=== PATIENT | female | born 1960 | race Caucasian/White ===

== ENCOUNTER → 2017-10-05 | Outpatient (CLI) | payer BC ==
[~2017-10-05] MED LIST: CANA1TAB PO; EZET10TA47 PO; FURO-85 PO; HYDR12.55 PO; IBUP-1450 PO; METF-384 PO; METO50TA16 PO; POTA10CA28 PO; SIMV40TA2 PO; SITA100T3 PO
[2017-10-05 18:38] LABS: MEAN CELL VOLUME 92.2 fL (80-100); MEAN CORPUSCULAR HEMOGLOBIN 32.6 pg (25-34); MEAN CORPUSCULAR HGB CONC 35.4 g/dl (32-36); MEAN PLATELET VOLUME 12.4 fL (7.4-10.4); PLATELET COUNT 22 K/uL (130-400); RED BLOOD COUNT 4.23 M/uL (4.2-5.4)
[2017-10-05 18:40] LABS: BASO % 0.2 %; BASO ABS # 0.01 K/uL (0-0.2); COMPLETE YES; EOS % 2.5 %; IG% 0.5 %; LYMPH % 24.1 %; LYMPH ABS # 1.06 K/uL (1.2-3.4); MONO % 12.3 %; NEUT % 60.4 %; PLT ESTIMATE SIGNIFIC DECREASED
== END | disposition home or self-care (01) ==
LOC: C.LAB 16:44
PROVIDERS: ATTEND Internal Medicine Gastroenterology
DX: K86.9 Disease of pancreas, unspecified (principal)

== ENCOUNTER → 2017-10-07 | Day surgery (SDC) | payer BC ==
[2017-10-05 15:36] VITALS: Ht 162.6 cm; Wt 110.9 kg
[2017-10-07] VITALS (12 sets, daily range): BP systolic 118–154; BP diastolic 48–78; PULSE 67–88; TEMP 36.5–36.8; O2SAT 93–100
[~2017-10-07] VITALS: Ht 162.6 cm; Wt 110.9 kg
[~2017-10-07] MED LIST changes: +ATROPINE SULFATE 0.1 MG/ML 5ML SYR IV PRN; -CANA1TAB PO; +DiphenhydrAMINE HCL 50 MG/ML VIAL IV SCH; +EpHEDrine SULFATE INJ 50 MG/ML AMP IV PRN; +FENTANYL CITRATE INJ 50 MCG/1 ML 2 ML VIAL IV PRN; +FENTANYL CITRATE INJ 50 MCG/1 ML 2 ML VIAL ONE; +FLUMAZENIL 0.1 MG/1 ML 10 ML VIAL IV ONE; +LACTATED RINGER'S 1000ML 1,000 ML IV SCH; +LIDOCAINE HCL 2% 2 ML VIAL (20MG/ML) ONE; +ONDANSETRON INJ 2 MG/ML 2 ML VIAL IV PRN; +ONDANSETRON INJ 2 MG/ML 2 ML VIAL ONE; +PROPOFOL IV EMULSION 10 MG/ML 20 ML VIAL IV ONE; -SIMV40TA2 PO; +SUCCINYLCHOLINE CHLORIDE 20 MG/ML 10 ML VIAL IV ONE
--- NOTE | 2017-10-07 08:39 | Endo History and Physical ---
History & Physical Date of Service: Oct 07, 2017. Chief Complaint: Abnormal CT scan Referring Physician: History of Present Illness 57-year-old female with a history of ITP who was referred for endoscopic ultrasound to evaluate a suspicious appearing pancreas on CT scan. The patient was found to have thrombocytopenia over 6 months ago and thought initially to have ITP. She was recently found to have antibody positive for hepatitis B, a full serologic workup is still not available. The patient does have a long history of obesity but denies a family history of liver problems or cirrhosis. There is no family history of liver cancer stomach cancer or esophageal cancer. She denies any prior intra-abdominal surgeries, tattoos or travel outside the [place] or IV drug abuse. Past Medical History ITP HYPERTENSION DIABETES OBESITY LYMPHEDEMA Past Surgical History Hx Cardiac Surgery: Yes (CARDIAC CATH MORE THAN 6 YRS AGO-NO STENTS) Hx Abdominal Surgery: Yes (OVARIAN CYSTECTOMY,GB SURG) Hx Post-Op Nausea and Vomiting: No Hx Cancer Surgery: No Hx Thoracic Surgery: No Hx Orthopedic: No Hx Urinary Tract Surgery: No Social History Smoking Status: Never Smoker Hx Substance Use: No Hx Alcohol Use: No Allergies Coded Allergies: Adhesives (Verified Allergy, Unknown, REDNESS TO SKIN,PULLED SKIN OFF- SOME TAPES, 10/07/17) Amoxicillin (Verified Allergy, Unknown, "gives me a urinary tract infection", 10/07/17) Canagliflozin (Verified Allergy, Unknown, AFFECTED LIVER?, 10/07/17) Poison Helga Extract/Poison [place] Extra (Verified Allergy, Unknown, "get a really bad case of it", 10/07/17) Simvastatin (Verified Adverse Reaction, Unknown, AFFECTED LIVER?, 10/07/17) Current Medications Reported Home Medications Medications Dose Route/Sig Max Daily Dose Days Date Category Dose Instructions Motrin (Ibuprofen) 600 Mg Tab 600 Mg PO BID 10/05/17 Reported Januvia (Sitagliptin Phosphate) 100 Mg Tab 100 Mg PO QPM 05/18/17 Reported Lopressor (Metoprolol Tartrate) 50 Mg Tab 50 Mg PO BID 05/18/17 Reported Micro-K Ext Rel (Potassium Chloride) 10 Meq Capcr 10 Meq PO PRN 05/18/17 Reported Zetia (Ezetimibe) 10 Mg Tab 10 Mg PO HS 05/17/17 Reported Hydrochlorothiazide 12.5 Mg Tab 1 Tab PO DAILY PRN 30 05/17/17 Reported Lasix (Furosemide) 20 Mg Tab 20 Mg PO DIRECTED PRN 05/17/17 Reported takes when ankles are swollen Glucophage (Metformin Hcl) 1,000 Mg Tab 1,000 Mg PO BID 05/17/17 Reported Vital Signs Weight (Kilograms): 110.91 Height (Feet): 5 Height (Inches): 4 Date Time Temp Pulse Resp B/P (MAP) Pulse Ox O2 Delivery O2 Flow Rate FiO2 10/07/17 08:15 36.7 75 18 131/50 97 10/07/17 08:01 36.7 67 18 132/57 (82) Room Air 10/07/17 08:00 36.7 73 18 124/48 98 10/07/17 07:45 36.7 67 18 132/57 97 Physical Exam General Appearance: no apparent distress Respiratory/Chest: Auscultation: breath sounds normal Cardiovascular: Heart Auscultation: RRR, no murmurs Abdomen: Inspection & Palpation: soft Assessment and Plan Patient presenting for endoscopic ultrasound to evaluate an abnormal appearing pancreas on CT scan. She is complicated given her thrombocytopenia and we are giving the patient 2 units of platelets prior to her procedure. We are planning to give unit of platelets after help prevent bleeding if the fine- needle aspiration is performed. I discussed the risks and benefits of the procedure at great length with the patient and her family. The risks include, perforation, infection, pain, hematoma, bleeding and insufficient cellularity if the fine-needle aspiration is performed. As there is a question of liver disease we are planning to do upper endoscopy to evaluate for evidence of portal hypertension. plan 2 units platelets prior to EGD / EUS 1 unit platelets after procedure
[2017-10-07 09:59] LABS: HEMATOCRIT 35.9 % (37-47); MEAN CELL VOLUME 91.6 fL (80-100); MEAN CORPUSCULAR HEMOGLOBIN 32.9 pg (25-34); MEAN CORPUSCULAR HGB CONC 35.9 g/dl (32-36); MEAN PLATELET VOLUME 10.6 fL (7.4-10.4); PLATELET COUNT 41 K/uL (130-400); RED BLOOD COUNT 3.92 M/uL (4.2-5.4); WHITE BLOOD COUNT 4.84 K/uL (4.8-10.8)
[2017-10-07 10:04] LABS: PLT ESTIMATE DECREASED
[2017-10-07 10:50] LABS: PLATELET COUNT 65 K/uL (130-400)
--- NOTE | 2017-10-07 11:01 | GI REPORT ---
Procedure Date: 10/07/2017 9:10 AM Procedure: Upper GI endoscopy Indications: Abnormal CT of the GI tract Medicines: General Anesthesia Complications: No immediate complications. Estimated blood loss: Minimal. Estimated Blood Loss: Estimated blood loss was minimal. Procedure: Pre-Anesthesia Assessment: - Prior to the procedure, a History and Physical was performed, and patient medications, allergies and sensitivities were reviewed. The patient's tolerance of previous anesthesia was reviewed. - The risks and benefits of the procedure and the sedation options and risks were discussed with the patient. All questions were answered and informed consent was obtained. - Patient identification and proposed procedure were verified prior to the procedure by the physician, the nurse and the elevating grader operator. The procedure was verified in the procedure room. - Pre-procedure physical examination revealed no contraindications to sedation. - ASA Grade Assessment: III - A patient with severe systemic disease. - After reviewing the risks and benefits, the patient was deemed in satisfactory condition to undergo the procedure. - The anesthesia plan was to use general anesthesia. - Immediately prior to administration of medications, the patient was re-assessed for adequacy to receive sedatives. - The heart rate, respiratory rate, oxygen saturations, blood pressure, adequacy of pulmonary ventilation, and response to care were monitored throughout the procedure. - The physical status of the patient was re-assessed after the procedure. After obtaining informed consent, the endoscope was passed under direct vision. Throughout the procedure, the patient's blood pressure, pulse, and oxygen saturations were monitored continuously. The scope was introduced through the mouth, and advanced to the third part of duodenum. The upper GI endoscopy was accomplished without difficulty. The patient tolerated the procedure well. Findings: Grade I varices with no bleeding were found in the lower third of the esophagus 30 to 36 cm from the incisors. These had no stigmata of recent bleeding. The varices had no red matteo signs. They were 3 mm in largest diameter. Moderate portal hypertensive gastropathy was found in the entire examined stomach. Biopsies were taken with a cold forceps to screen for H pylori Estimated blood loss was minimal. Estimated blood loss was minimal. The examined duodenum was normal. Impression: - Grade I esophageal varices. - Portal hypertensive gastropathy. Biopsied. - Normal examined duodenum. Recommendation: - Await pathology results. - Perform an upper endoscopic ultrasound (UEUS) today. Cortes Reed D.O. Cortes Reed DO 10/07/2017 10:26:26 AM This report has been signed electronically. Note Initiated On: 10/07/2017 9:10 AM I attest to the content of the Intraoperative Record and orders documented therein, exceptions below
--- NOTE | 2017-10-07 11:30 | [facility] Post Operative Brief Note ---
Immediate Operative Summary Operative Date Oct 07, 2017. Pre-Operative Diagnosis Abnormal CT Scan with mass on pancreas Post-Operative Diagnosis Esophageal varices Portal gastropathy 21 mm pancreatic body mass Procedure(s) Performed Upper Gastrointestinal Endoscopy Endoscopic Ultrasonography with biopsy and fine needle aspiration Surgeon Dr. Cortes Reed Order Desk Caller Surgeon(s) None Estimated Blood Loss zero per surgeon Findings Esophageal varices Portal gastropathy 21 mm pancreatic body mass Specimens 1) Gastric biopsies 2) Pancreatic mass cytology Anesthesia General Complication(s) None Disposition Recovery Room / PACU
--- NOTE | 2017-10-07 11:31 | Discharge Instructions ---
Endoscopy Patient Instructions Date / Procedure(s) Performed Oct 07, 2017. EGD, Other (Endoscopic ultrasound) Allergy Information Coded Allergies: Adhesives (Verified Allergy, Unknown, REDNESS TO SKIN,PULLED SKIN OFF- SOME TAPES, 10/07/17) Amoxicillin (Verified Allergy, Unknown, "gives me a urinary tract infection", 10/07/17) Canagliflozin (Verified Allergy, Unknown, AFFECTED LIVER?, 10/07/17) Poison Helga Extract/Poison [place] Extra (Verified Allergy, Unknown, "get a really bad case of it", 10/07/17) Simvastatin (Verified Adverse Reaction, Unknown, AFFECTED LIVER?, 10/07/17) Discharge Date / Findings Oct 07, 2017. Esophageal varices Portal gastropathy 21 mm pancreatic body mass Medication Instructions Restart Stopped Medication(s): Reported Home Medications Medications Dose Route/Sig Max Daily Dose Days Date Category Dose Instructions Motrin (Ibuprofen) 600 Mg Tab 600 Mg PO BID 10/05/17 Reported Januvia (Sitagliptin Phosphate) 100 Mg Tab 100 Mg PO QPM 05/18/17 Reported Lopressor (Metoprolol Tartrate) 50 Mg Tab 50 Mg PO BID 05/18/17 Reported Micro-K Ext Rel (Potassium Chloride) 10 Meq Capcr 10 Meq PO PRN 05/18/17 Reported Zetia (Ezetimibe) 10 Mg Tab 10 Mg PO HS 05/17/17 Reported Hydrochlorothiazide 12.5 Mg Tab 1 Tab PO DAILY PRN 30 05/17/17 Reported Lasix (Furosemide) 20 Mg Tab 20 Mg PO DIRECTED PRN 05/17/17 Reported takes when ankles are swollen Glucophage (Metformin Hcl) 1,000 Mg Tab 1,000 Mg PO BID 05/17/17 Reported Provider Instructions Activity Restrictions - No exercising or heavy lifting for 24 hours. - Do not drink alcohol the day of the procedure. - Do not drive a car or operate machinery until the day after the procedure. - Do not make any important decisions or sign important papers in 24 hours after the procedure. Following Day: - Return to full activity which may include returning to work/school. Diet Start your diet with liquids and light foods (jello, soup, juice, toast). Then eat your usual diet if not nauseated. Treatment For Common After Affects For mild abdominal pain, bloating, or excessive gas: - Rest - Eat lightly - Lie on right side Follow-Up Information Await pathology results No nonsteroidals for 1 week Anesthesia Information What You Should Know You have had a procedure that required some medicine to reduce anxiety and discomfort. This treatment is called moderate sedation. After receiving the treatment, you may be sleepy, but you will be able to breathe on your own. The effects of the treatment may last for several hours. Follow these instructions along with Activity/Diet recommendations noted above: * Do NOT do anything where dizziness or clumsiness would be dangerous. * Rest quietly at home today, then you can be up and about tomorrow. * Have a responsible person stay with you the rest of today. * You may have had an I.V. today. If so, you may take the dressing off later today. Recommendations Call your doctor if: * Trouble breathing * Continuous vomiting for more than 24 hours * Temperature above 101 degrees * Severe abdominal pain or bloating * Pain not relieved by pain medicine ordered * There is increased drainage or redness from any incision * A large amount of rectal bleeding greater than 2-3 tablespoons. (If you had a polyp/s removed or have hemorrhoids, a small amount of blood - from the rectum is to be expected.) * You have any unanswered questions or concerns. IN THE EVENT OF A SERIOUS EMERGENCY, GO TO THE NEAREST EMERGENCY ROOM Your discharge instructions were prepared by provider Cortes Reed. Patient Instructions Signature Page Edwina Fountain Patient (or Guardian) Signature/Date: I have read and understand the instructions given to me by my caregivers. Caregiver/RN/Doctor Signature/Date: The above-named patient and/or guardian has received patient instructions on this date. + Original Patient Signature Page (only) stays with chart. Please make copy for patient.
--- NOTE | 2017-10-07 11:41 | GI REPORT ---
Procedure Date: 10/07/2017 10:26 AM Procedure: Upper EUS Indications: Suspected mass in pancreas on CT scan Medicines: General Anesthesia Complications: No immediate complications. Estimated blood loss: Minimal. Estimated Blood Loss: Estimated blood loss was minimal. Procedure: Pre-Anesthesia Assessment: - Prior to the procedure, a History and Physical was performed, and patient medications, allergies and sensitivities were reviewed. The patient's tolerance of previous anesthesia was reviewed. - The risks and benefits of the procedure and the sedation options and risks were discussed with the patient. All questions were answered and informed consent was obtained. - Patient identification and proposed procedure were verified prior to the procedure by the physician, the nurse and the dredge engineer. The procedure was verified in the procedure room. - Pre-procedure physical examination revealed no contraindications to sedation. - ASA Grade Assessment: III - A patient with severe systemic disease. - After reviewing the risks and benefits, the patient was deemed in satisfactory condition to undergo the procedure. - The anesthesia plan was to use general anesthesia. - Immediately prior to administration of medications, the patient was re-assessed for adequacy to receive sedatives. - The heart rate, respiratory rate, oxygen saturations, blood pressure, adequacy of pulmonary ventilation, and response to care were monitored throughout the procedure. - The physical status of the patient was re-assessed after the procedure. After obtaining informed consent, the endoscope was passed under direct vision. Throughout the procedure, the patient's blood pressure, pulse, and oxygen saturations were monitored continuously. The Scope was introduced through the mouth, and advanced to the second part of duodenum. The upper EUS was accomplished without difficulty. The patient tolerated the procedure well. Findings: Endosonographic Finding : There was no sign of significant endosonographic abnormality in the ampulla. No masses were identified. There was mild dilation in the common bile duct which measured up to 6.5 mm. There was abnormal echogenicity in the visualized portion of the liver. This area was hypoechoic. No lymphadenopathy seen. There was no sign of significant endosonographic abnormality in the left adrenal gland. No masses and no adrenal gland enlargement were identified. There was no sign of significant endosonographic abnormality in the pancreatic head. No masses, the pancreatic duct was thin in caliber. The PD was 3 mm in the head (normal) An oval mass was identified in the pancreatic body (junction of neck and body). The mass was hypoechoic. The mass measured 24 mm by 15 mm in maximal cross-sectional diameter. The outer margins were irregular. There was sonographic evidence suggesting invasion into the splenic vein (manifested by abutment). An intact interface was seen between the mass and the superior mesenteric artery and celiac trunk suggesting a lack of invasion. The remainder of the pancreas was examined. The endosonographic appearance of parenchyma and the upstream pancreatic duct indicated duct dilation, a maximum duct diameter of 3 mm and parenchymal atrophy. Fine needle aspiration for cytology was performed. Color Doppler imaging was utilized prior to needle puncture to confirm a lack of significant vascular structures within the needle path. Five passes were made with the 25 gauge needle using a transgastric approach. A stylet was used. A expanding machine operator was present and performed a preliminary cytologic examination. The cellularity of the specimen was adequate. Final cytology results are pending. Estimated blood loss was minimal. Impression: - Normal ampulla. - Mild CBD dilation to 6.5 mm (age related). - There was abnormal echogenicity in the visualized portion of the liver. This was hypoechoic and consistent with a clinical history of cirrhosis. - Endosonographic images of the left adrenal gland were unremarkable. - Normal pancreatic head. - A 24 mm mass was identified in the pancreatic body. This was staged T2 N0 Mx by endosonographic criteria. The staging applies if malignancy is confirmed. Fine needle aspiration performed. Recommendation: - Observe patient in PACU for 1 hour for observation. - Advance diet as tolerated today. - Await cytology results. Cortes Reed D.O. Cortes Reed DO 10/07/2017 11:40:58 AM This report has been signed electronically. Note Initiated On: 10/07/2017 10:26 AM I attest to the content of the Intraoperative Record and orders documented therein, exceptions below
--- NOTE | 2017-10-07 12:17 | Anesthesiology Progress Note ---
Anesthesia Post Op Note Date & Time Oct 07, 2017 at 12:17 Vital Signs Pain Intensity: 0 Vital Signs Past 12 Hours Date Time Temp Pulse Resp B/P (MAP) Pulse Ox O2 Delivery O2 Flow Rate FiO2 10/07/17 12:05 37.5 80 20 124/71 97 Room Air 10/07/17 11:55 78 20 123/64 100 Room Air 10/07/17 11:45 77 20 137/78 99 Oxymask 10 10/07/17 11:45 36.5 79 16 137/78 100 10.0 10/07/17 11:35 76 20 120/59 99 Oxymask 10 10/07/17 11:28 36.2 93 20 129/56 98 Oxymask 10 10/07/17 09:20 36.7 79 16 137/50 96 10/07/17 09:06 36.7 79 18 118/52 94 10/07/17 08:46 36.8 75 18 128/50 99 10/07/17 08:40 36.7 78 18 128/50 98 10/07/17 08:15 36.7 75 18 131/50 97 10/07/17 08:01 36.7 67 18 132/57 (82) Room Air 10/07/17 08:00 36.7 73 18 124/48 98 10/07/17 07:45 36.7 67 18 132/57 97 Notes Mental Status: alert / awake / arousable, participated in evaluation Pt Amnestic to Procedure: Yes Nausea / Vomiting: adequately controlled Pain: adequately controlled Airway Patency, RR, SpO2: stable & adequate BP & HR: stable & adequate Hydration State: stable & adequate Anesthetic Complications: no major complications apparent
== END | disposition home or self-care (01) ==
LOC: C.ACU 06:37
PROVIDERS: ATTEND Internal Medicine Gastroenterology
DX: C25.1 Malignant neoplasm of body of pancreas (principal); I85.00 Esophageal varices without bleeding; K31.89 Other diseases of stomach and duodenum; E11.9 Type 2 diabetes mellitus without complications; I10 Essential (primary) hypertension

== ENCOUNTER 2017-12-30 12:37 | Inpatient (IN) | payer BC ==
[~2017-12-30] VITALS: Ht 167.6 cm; Wt 107.3 kg
[~2017-12-30 12:37] MED LIST changes: -ATROPINE SULFATE 0.1 MG/ML 5ML SYR IV PRN; -DiphenhydrAMINE HCL 50 MG/ML VIAL IV SCH; -EpHEDrine SULFATE INJ 50 MG/ML AMP IV PRN; -FENTANYL CITRATE INJ 50 MCG/1 ML 2 ML VIAL IV PRN; -FENTANYL CITRATE INJ 50 MCG/1 ML 2 ML VIAL ONE; -FLUMAZENIL 0.1 MG/1 ML 10 ML VIAL IV ONE; -IBUP-1450 PO; -LACTATED RINGER'S 1000ML 1,000 ML IV SCH; -LIDOCAINE HCL 2% 2 ML VIAL (20MG/ML) ONE; -METO50TA16 PO; -ONDANSETRON INJ 2 MG/ML 2 ML VIAL IV PRN; -ONDANSETRON INJ 2 MG/ML 2 ML VIAL ONE; -PROPOFOL IV EMULSION 10 MG/ML 20 ML VIAL IV ONE; -SITA100T3 PO; -SUCCINYLCHOLINE CHLORIDE 20 MG/ML 10 ML VIAL IV ONE
[2017-12-30] MEDS ORDERED: SODIUM CHLORIDE 0.9% 1000ML 1,000 ML IV STA ×2 (13:12→13:30)
--- NOTE | 2017-12-30 13:28 | EMERGENCY ROOM VISIT NOTE ---
History First contact with patient: 13:08 Chief Complaint: ABNORMAL LABS Stated Complaint: ABNORMAL LABS History of Present Illness The patient is a 57 year old female who presents to the Emergency Room with complaints of worsening generalized weakness over the past week and now referred to ED by her pcp for worsening outpatient labs showing worsening renal function and elevated potassium. Reports fatigue, generalized weakness, intermittent dyspnea on exertion. Still urinating but feels she has been urinating less. Denies CP, f/c, n/v, diarrhea, dysuria. Source of History: patient Onset: past week Position: other (generalized) Symptom Intensity: moderate Quality: other (fatigue) Timing: constant Modifying Factors (Worsening): exertion Modifying Factors (Relieving): rest Associated Symptoms: + SOB, + urinary symptoms, + fatigue, + weakness, No fevers, No chills, No headache, No chest pain, No nausea, No vomiting, No abdominal pain, No diarrhea Review of Systems See HPI for pertinent positives and negatives. A total of ten systems were reviewed and were otherwise negative. Past Medical/Surgical History Medical Problems: (1) GUILLERMINA (acute kidney injury) (2) Cirrhosis (3) DM type 2 (diabetes mellitus, type 2) (4) HTN (hypertension) (5) POWERS (nonalcoholic steatohepatitis) (6) Pancreatic cancer (7) Splenomegaly (8) Thrombocytopenia Surgical Problems: (1) History of endometrial ablation (2) Hx of cholecystectomy (3) Hx of esophagogastroduodenoscopy (4) Hx of tonsillectomy Family History Patient reports no known family medical history. Social History Smoking Status: Never Smoker Marital Status: Occupation Status: employed Current/Historical Medications Scheduled Ezetimibe (Zetia), 10 MG PO HS Ibuprofen (Ibuprofen), 2 TAB PO BID Metformin Hcl (Glucophage), 1,000 MG PO BID Metoprolol Tartrate (Lopressor) (Lopressor), 50 MG PO DAILY Sitagliptin Phosphate (Januvia), 100 MG PO QPM Spironolactone (Aldactone), 50 MG PO DAILY Scheduled PRN Alprazolam (Xanax), 1 TAB PO HS PRN for Insomnia Hydrochlorothiazide (Hydrochlorothiazide), 1 TAB PO DAILY PRN for PRN Allergies Amoxicillin, Simvastatin, Adhesives Physical Exam Vital Signs Date Time Temp Pulse Resp B/P (MAP) Pulse Ox O2 Delivery O2 Flow Rate FiO2 12/30/17 16:13 84 18 122/65 98 Room Air 12/30/17 15:09 84 18 120/66 98 Room Air 12/30/17 14:24 84 12/30/17 14:10 84 18 120/62 97 Room Air 12/30/17 12:44 36.6 82 18 143/61 99 Physical Exam GENERAL: Awake, alert, fatigued-appearing, in no distress HENT: Normocephalic, atraumatic. Oropharynx with dry mucus membranes otherwise unremarkable. EYES: Normal conjunctiva. Sclera non-icteric. NECK: Supple. No nuchal rigidity. FROM. No JVD. RESPIRATORY: Clear to auscultation. CARDIAC: Regular rate, normal rhythm. Extremities warm and well perfused. Pulses equal. ABDOMEN: Soft, obese. No tenderness to palpation. No rebound or guarding. No masses. RECTAL: Deferred. MUSCULOSKELETAL: Chest examination reveals no tenderness. The back is symmetrical on inspection without obvious abnormality. There is no CVA tenderness to palpation. No joint edema. LOWER EXTREMITIES: Calves are equal size bilaterally and non-tender. 2+ bilateral pitting edema. No discoloration. NEURO: Normal sensorium. No sensory or motor deficits noted. SKIN: No rash or jaundice noted. Medical Decision & Procedures ER Provider Diagnostic Interpretation: Radiology results as stated below per my review and radiologist interpretation: CHEST ONE VIEW PORTABLE CLINICAL HISTORY: Shortness of breath COMPARISON STUDY: No previous studies for comparison. FINDINGS: The cardiac and mediastinal contours are normal. There is no evidence of focal pulmonary consolidation. There is no evidence of failure. No pleural effusions are visualized.[ IMPRESSION: No active disease in the chest. Electronically signed by: Marvin Julien M.D. 12/30/2017 1:44 PM Dictated Date/Time: 12/30/2017 1:[address] OF THE ABDOMEN AND PELVIS WITHOUT CONTRAST CLINICAL HISTORY: Abdominal pain. Renal failure. Pancreatic cancer. COMPARISON STUDY: No previous studies for comparison. TECHNIQUE: Axial images of the abdomen and pelvis were obtained without IV contrast. Images were reviewed in the axial, sagittal, and coronal planes. A dose lowering technique was utilized adhering to the principles of ALARA. FINDINGS: Visualized portions of the lower chest demonstrate numerous noncalcified pulmonary nodules, including a 6 mm right lower lobe nodule shown image 93 of 521, a 5 mm left lower lobe nodule shown image 79 and a 6 mm noncalcified right middle lobe nodule shown on image 48. Evaluation of the abdomen and pelvis is suboptimal on this unenhanced exam. Paraesophageal varices are noted. The liver is cirrhotic. Specifically, the liver is dysmorphic, shrunken and has a nodular contour. Sensitivity for detection of hepatic lesions is significantly diminished on this unenhanced study but none are identified. The spleen is moderately enlarged. Moderate abdominal and pelvic ascites is noted. Additional upper abdominal varices are noted. There is anasarca. There is no pneumatosis, free air or portal venous gas. Unenhanced images of the adrenal glands are unremarkable. There are small bilateral renal calculi. There are no ureteral calculi. There is no hydronephrosis or hydroureter. The appendix is normal. The pancreatic tail is atrophic. There is a possible hypodensity within the pancreatic body with possible pancreatic ductal dilatation which is suboptimally assessed on this unenhanced exam. There are no suspicious osseous lesions. Mesenteric infiltration is likely related to portal hypertension. No pneumatosis, free air or portal venous gas is present. IMPRESSION: 1. Cirrhosis with manifestations of portal hypertension including moderate splenomegaly, moderate ascites and varices formation. 2. Suboptimal evaluation of the abdomen and pelvis given the lack of IV contrast. 3. Possible hypodensity within the pancreatic body with upstream pancreatic glandular atrophy and possible pancreatic ductal dilatation which may reflect the known primary pancreatic lesion. 4. Multiple small indeterminate pulmonary nodules. 5. Bilateral nephrolithiasis. 6. Generalized anasarca. Electronically signed by: Branden Tamez M.D. 12/30/2017 3:42 PM Dictated Date/Time: 12/30/2017 3:30 PM Laboratory Results 12/30/17 14:04 Red Blood Count 3.32, Mean Corpuscular Volume 91.9, Mean Corpuscular Hemoglobin 33.4, Mean Corpuscular Hemoglobin Concent 36.4, Mean Platelet Volume 11.5, Neutrophils (%) (Auto) 66.4, Lymphocytes (%) (Auto) 18.7, Monocytes (%) (Auto) 12.8, Eosinophils (%) (Auto) 1.7, Basophils (%) (Auto) 0.2, Neutrophils # (Auto ) 3.48, Lymphocytes # (Auto) 0.98, Monocytes # (Auto) 0.67, Eosinophils # (Auto ) 0.09, Basophils # (Auto) 0.01 Test 12/30/17 13:40 12/30/17 14:04 Urine Crystals CALCIUM OXALATE (NONE Urine Pathogenic Casts /lpf (0) White Blood Count 5.24 K/uL (4.8-10.8) Red Blood Count 3.32 M/uL (4.2-5.4) Hemoglobin 11.1 g/dL (12.0-16.0) Hematocrit 30.5 % (37-47) Mean Corpuscular Volume 91.9 fL (80-100) Mean Corpuscular Hemoglobin 33.4 pg (25-34) Mean Corpuscular Hemoglobin Concent 36.4 g/dl (32-36) Platelet Count 35 K/uL (130-400) Mean Platelet Volume 11.5 fL (7.4-10.4) Neutrophils (%) (Auto) 66.4 % Lymphocytes (%) (Auto) 18.7 % Monocytes (%) (Auto) 12.8 % Eosinophils (%) (Auto) 1.7 % Basophils (%) (Auto) 0.2 % Neutrophils # (Auto) 3.48 K/uL (1.4-6.5) Lymphocytes # (Auto) 0.98 K/uL (1.2-3.4) Monocytes # (Auto) 0.67 K/uL (0.11-0.59) Eosinophils # (Auto) 0.09 K/uL (0-0.5) Basophils # (Auto) 0.01 K/uL (0-0.2) RDW Standard Deviation 48.7 fL (36.4-46.3) RDW Coefficient of Variation 14.7 % (11.5-14.5) Immature Granulocyte % (Auto) 0.2 % Immature Granulocyte # (Auto) 0.01 K/uL (0.00-0.02) Prothrombin Time 12.2 SECONDS (9.0-12.0) Prothromb Time International Ratio 1.2 (0.9-1.1) Magnesium Level 1.9 mg/dl (1.8-2.4) Total Bilirubin 2.6 mg/dl (0.2-1) Direct Bilirubin 1.0 mg/dl (0-0.2) Aspartate Amino Transf (AST/SGOT) 54 U/L (15-37) Alanine Aminotransferase (ALT/SGPT) 33 U/L (12-78) Alkaline Phosphatase 81 U/L (45-117) Total Protein 5.9 gm/dl (6.4-8.2) Albumin 2.9 gm/dl (3.4-5.0) Lipase 324 U/L (73-393) Laboratory results reviewed by me Medications Administered Medications (Trade) Dose Ordered Sig/Ngoc Route Start Time Stop Time Status Last Admin Dose Admin Sodium Chloride 1,000 ml @ 125 mls/hr Q8H STAT IV 12/30/17 13:30 12/30/17 18:27 DC 12/30/17 14:10 125 MLS/HR Ceftriaxone Sodium (Rocephin Inj) 1 gm NOW STAT IV 12/30/17 15:50 12/30/17 15:55 DC 12/30/17 16:14 1 GM ECG Per My Interpretation Indication: other (Abnormal lab results) Rate (beats per minute): 83 Rhythm: normal sinus Findings: no acute ischemic change, other (Normal axis) ED Course 1308: The patient was evaluated in room C10. A complete history and physical exam was performed. 1534: Upon reexamination, the patient was resting comfortably. I discussed the test results and treatment plan with her. The patient will be evaluated for further management. 1550: I discussed the patient's case [facility] The patient will be evaluated for further management. Medical Decision I reviewed the patient's past medical history, medications, and the nursing notes as described above. Differential diagnosis: Etiologies such as metabolic, infection, hypo/hyperglycemia, electrolyte abnormalities, cardiac sources, intracerebral event, toxicologic, neurologic, as well as others were entertained. The patient is a 57-year-old woman with a past medical history of Powers cirrhosis and thrombocytopenia with a new diagnosis of pancreatic cancer that is not amenable to surgery, radiation, or chemotherapy but [facility] with worsening outpatient labs of elevated potassium and creatinine in the setting of worsening generalized fatigue and peripheral edema per hpi. On arrival the patient is fatigued appearing but in no acute distress, afebrile stable vital signs. The patient reports increased abdominal distention but her abdomen is otherwise soft nontender. She has 2+ bilateral lower extremity pitting edema that has increased over the past week. Labs notable for acute renal failure with Cr 3.1 compared to wnl last month. Lactate elevated to 3 in the setting of patient's clinically dry appearance (despite her peripheral edema). WBC wnl. UA dirty but with WBC and bacteria so will cover with CTX for now. CT abd/pelvis demonstrates patient's cirrhosis and likely primary pancreatic lesion but otherwise no acute findings though limited by lack of contrast. Case d/w Mauricio Pittman PA-C, who will admit the patient for further management. The scribe's documentation has been prepared under my direction and personally reviewed by me in its entirety. I confirm that the note above accurately reflects all work, treatment, procedures, and medical decision making performed by me. Medication Reconcilliation Current Medication List: was personally reviewed by me Blood Pressure Screening Patient's blood pressure: Normal blood pressure Blood pressure disposition: Did not require urgent referral Consults Time Called: 1548 Consulting Physician: Carol Jimenez PA-C, [facility] Returned Call: 1550 I discussed the patient's case with Carol Jimenez PA-C, [facility]. The patient will be evaluated for further management. Impression Primary Impression: Acute renal failure Additional Impressions: Pancreatic cancer Cirrhosis Departure Information Dispostion Being Evaluated By Hospitalist Referrals Sal Edge M.D. (PCP) Patient Instructions My [facility] Problem Qualifiers
--- NOTE | 2017-12-30 13:45 | DIAGNOSTIC IMAGING REPORT ---
CHEST ONE VIEW PORTABLE CLINICAL HISTORY: Shortness of breath COMPARISON STUDY: No previous studies for comparison. FINDINGS: The cardiac and mediastinal contours are normal. There is no evidence of focal pulmonary consolidation. There is no evidence of failure. No pleural effusions are visualized.[ IMPRESSION: No active disease in the chest. Electronically signed by: Marvin Julien M.D. 12/30/2017 1:44 PM Dictated Date/Time: 12/30/2017 1:44 PM
[2017-12-30] MEDS ORDERED: METO50TA16 PO (13:46)
[2017-12-30] MEDS ORDERED: SITA100T3 PO (13:47)
[2017-12-30 14:19] LABS: HEMATOCRIT 30.5 % (37-47); HEMOGLOBIN 11.1 g/dL (12.0-16.0); MEAN CELL VOLUME 91.9 fL (80-100); MEAN CORPUSCULAR HEMOGLOBIN 33.4 pg (25-34); MEAN CORPUSCULAR HGB CONC 36.4 g/dl (32-36); RED CELL DISTRIBUTION WIDTH CV 14.7 % (11.5-14.5); RED CELL DISTRIBUTION WIDTH SD 48.7 fL (36.4-46.3); WHITE BLOOD COUNT 5.24 K/uL (4.8-10.8)
[2017-12-30] MEDS ORDERED: SPIR50TA2 PO (14:19)
[2017-12-30 14:20] LABS: MEAN PLATELET VOLUME 11.5 fL (7.4-10.4); PLATELET COUNT 35 K/uL (130-400)
[2017-12-30 14:27] LABS: INR 1.2 (0.9-1.1)
[2017-12-30 14:36] LABS: ALBUMIN 2.9 gm/dl (3.4-5.0); CALCIUM 9.6 mg/dl (8.5-10.1); CREATININE 3.1 mg/dl (0.60-1.20); POTASSIUM 4.8 mmol/L (3.5-5.1)
[2017-12-30 14:39] LABS: BASO % 0.2 %; BASO ABS # 0.01 K/uL (0-0.2); EOS % 1.7 %; EOS ABS # 0.09 K/uL (0-0.5); IG# 0.01 K/uL (0.00-0.02); LYMPH % 18.7 %; LYMPH ABS # 0.98 K/uL (1.2-3.4); MONO % 12.8 %; MONO ABS # 0.67 K/uL (0.11-0.59); NEUT % 66.4 %; NEUT ABS # 3.48 K/uL (1.4-6.5); TOTAL PROTEIN 5.9 gm/dl (6.4-8.2)
[2017-12-30] MEDS ORDERED: IBUP-1450 PO (15:42)
--- NOTE | 2017-12-30 15:43 | DIAGNOSTIC IMAGING REPORT ---
CT OF THE ABDOMEN AND PELVIS WITHOUT CONTRAST CLINICAL HISTORY: Abdominal pain. Renal failure. Pancreatic cancer. COMPARISON STUDY: No previous studies for comparison. TECHNIQUE: Axial images of the abdomen and pelvis were obtained without IV contrast. Images were reviewed in the axial, sagittal, and coronal planes. A dose lowering technique was utilized adhering to the principles of ALARA. FINDINGS: Visualized portions of the lower chest demonstrate numerous noncalcified pulmonary nodules, including a 6 mm right lower lobe nodule shown image 93 of 521, a 5 mm left lower lobe nodule shown image 79 and a 6 mm noncalcified right middle lobe nodule shown on image 48. Evaluation of the abdomen and pelvis is suboptimal on this unenhanced exam. Paraesophageal varices are noted. The liver is cirrhotic. Specifically, the liver is dysmorphic, shrunken and has a nodular contour. Sensitivity for detection of hepatic lesions is significantly diminished on this unenhanced study but none are identified. The spleen is moderately enlarged. Moderate abdominal and pelvic ascites is noted. Additional upper abdominal varices are noted. There is anasarca. There is no pneumatosis, free air or portal venous gas. Unenhanced images of the adrenal glands are unremarkable. There are small bilateral renal calculi. There are no ureteral calculi. There is no hydronephrosis or hydroureter. The appendix is normal. The pancreatic tail is atrophic. There is a possible hypodensity within the pancreatic body with possible pancreatic ductal dilatation which is suboptimally assessed on this unenhanced exam. There are no suspicious osseous lesions. Mesenteric infiltration is likely related to portal hypertension. No pneumatosis, free air or portal venous gas is present. IMPRESSION: 1. Cirrhosis with manifestations of portal hypertension including moderate splenomegaly, moderate ascites and varices formation. 2. Suboptimal evaluation of the abdomen and pelvis given the lack of IV contrast. 3. Possible hypodensity within the pancreatic body with upstream pancreatic glandular atrophy and possible pancreatic ductal dilatation which may reflect the known primary pancreatic lesion. 4. Multiple small indeterminate pulmonary nodules. 5. Bilateral nephrolithiasis. 6. Generalized anasarca. Electronically signed by: Branden Tamez M.D. 12/30/2017 3:42 PM Dictated Date/Time: 12/30/2017 3:30 PM
[2017-12-30] MEDS ORDERED: CEFTRIAXONE SOD INJ 1 GM ADDVIAL IV STA (15:50)
[2017-12-30] MEDS ORDERED: ALPR0.5T PO (17:08)
[2017-12-30] MEDS ORDERED: IBUP1CAP9 PO (17:08)
[2017-12-30] MEDS ORDERED: ONDANSETRON INJ 2 MG/ML 2 ML VIAL IV PRN (17:15)
[2017-12-30] MEDS ORDERED: GLUCOSE 10 TABS/TUBE PO PRN (17:45)
[2017-12-30] MEDS ORDERED: DEXTROSE 50% 50 ML SYR IV PRN (17:45)
[2017-12-30] MEDS ORDERED: GLUCOSE 40% GEL 15 GM TUBE PO PRN (17:45)
[2017-12-30] MEDS ORDERED: GLUCAGON FOR INJ 1 MG VIAL SQ PRN (17:45)
[2017-12-30 18:23] VITALS: BP 120/77; PULSE 82; TEMP 36.7; O2SAT 99; BMI 39.5
[2017-12-30] MEDS ORDERED: SODIUM CHLORIDE 0.9% 1000ML 1,000 ML IV SCH (18:30)
--- NOTE | 2017-12-30 19:08 | History and Physical ---
History & Physical Date & Time of Service: Dec 30, 2017 at 17:11 Chief Complaint: Abnormal Labs Primary Care Physician: Sal Edge M.D. History of Present Illness Source: patient, family, clinic records, hospital records Pt is 57 y/o F with PMH HTN, DM II, pancreatic CA dx 10/2017, cirrhosis with portal hypertension, ascites, splenomegaly, portosystemic varices, small esophageal varices seen on EGD 10/17, thrombocytopenia presented to ER for abnormal lab values of K:6.0 and Cr: 3. Pt following with Dr Eris Batista - [place] [facility] [place] Pt not surgical candidate, not on chemo. Pt reports increased fatigue past 2 weeks. Pt states past 2 weeks noticed increased abdominal swelling. Having some intermittent right sided abdominal pain past couple of weeks also. Has been taking HCTZ daily and spironolactone daily. chronic LE edema for years, noticed increased edema past 4-5 days. Reports has BM every 3- 4 days. pt reports was given lactulose 30ml to take once daily. States took twice and had abdominal cramping and stopped. She is following with holistic practitioner and is taking herbal supplements, pt unsure what all she is taking. She hasn't been using creon since taking supplements. Using ibuprofen 200-400 mg BID. Reports hasn't been eating and drinking well past couple of days. 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 pt states platelet levels, been stable for several months. Hasn't had NPLATE since 09/2017. Denies hx encephalopathy. Denies hx paracentesis. Denies melena, hematochezia, hematuria, fever/chills, diaphoresis , N/V/D, L[place], dizziness, syncope, neck pain, CP, palpitations, cough, sore throat , choking. Hx CT Abd/Pelvis 09/27/17: Cirrhosis of liver with portal hypertension. splenomegaly, small ascites, and portosystemic varices. No focal hepatic lesion seen. Pancreatic neck/body hypodensity, [id number], with mild upstream pancreatic ductal prominence. several small basilar pulmonary nodules, largest 5mm. Repeat K: 4.8 here in ER today. Past Medical/Surgical History Medical Problems: (1) Cirrhosis Status: Chronic (2) DM type 2 (diabetes mellitus, type 2) Status: Chronic (3) HTN (hypertension) Status: Chronic (4) MEAD (nonalcoholic steatohepatitis) Status: Chronic (5) Pancreatic cancer Status: Chronic (6) Splenomegaly Status: Chronic (7) Thrombocytopenia Status: Chronic Surgical Problems: (1) History of endometrial ablation Status: Resolved (2) Hx of cholecystectomy Status: Resolved (3) Hx of esophagogastroduodenoscopy Permanent Comment: 10/07/17 - pancreatic mass, esophageal varices Status: Resolved (4) Hx of tonsillectomy Status: Resolved Family History Diabetes mellitus FH: CAD (coronary artery disease) FH: breast cancer Social History Smoking Status: Never Smoker Smokeless Tobacco Use: No Alcohol Use: none Drug Use: none Marital Status: Housing status: lives with family Occupational Status: employed Allergies Coded Allergies: Adhesives (Verified Allergy, Unknown, REDNESS TO SKIN,PULLED SKIN OFF- SOME TAPES, 12/30/17) Amoxicillin (Verified Allergy, Unknown, "gives me a urinary tract infection", 12/30/17) Canagliflozin (Verified Allergy, Unknown, AFFECTED LIVER?, 12/30/17) Poison Helga Extract/Poison Caspar Extra (Verified Allergy, Unknown, "get a really bad case of it", 12/30/17) Simvastatin (Verified Adverse Reaction, Unknown, AFFECTED LIVER?, 12/30/17) Home Medications Scheduled Ezetimibe (Zetia), 10 MG PO HS Ibuprofen (Ibuprofen), 2 TAB PO BID Metformin Hcl (Glucophage), 1,000 MG PO BID Metoprolol Tartrate (Lopressor) (Lopressor), 50 MG PO DAILY Sitagliptin Phosphate (Januvia), 100 MG PO QPM Spironolactone (Aldactone), 50 MG PO DAILY Scheduled PRN Alprazolam (Xanax), 1 TAB PO HS PRN for Insomnia Hydrochlorothiazide (Hydrochlorothiazide), 1 TAB PO DAILY PRN for PRN Review of Systems Constitutional: No fever, No chills, No sweats Eyes: No worsening of vision, No eye pain, No redness, No discharge, No diplopia ENT: No unusual epistaxis, No nasal symptoms, No sore throat, No trouble swallowing Respiratory: No cough, No sputum, No wheezing, No shortness of breath, No dyspnea on exertion, No dyspnea at rest, No hemoptysis Cardiovascular: No chest pain, No orthopnea, No PND, No palpitations Abdomen: + problem reported (see HPI), No GI bleeding Musculoskeletal: + swelling (see HPI), No calf pain Genitourinary - Female: No dysuria, No urinary frequency, No urinary urgency, No urinary incontinence, No urinary retention, No hematuria Neurologic: No memory loss, No paralysis, No numbness/tingling, No vertigo, No balance problems Endocrine: No excessive thirst, No excessive urination Hematologic / Lymphatic: No abnormal bleeding/bruising Integumentary: No rash, No itch Physical Exam Vital Signs Date Time Temp Pulse Resp B/P (MAP) Pulse Ox O2 Delivery O2 Flow Rate FiO2 12/30/17 16:13 84 18 122/65 98 Room Air 12/30/17 15:09 84 18 120/66 98 Room Air 12/30/17 14:24 84 12/30/17 14:10 84 18 120/62 97 Room Air 12/30/17 12:44 36.6 82 18 143/61 99 General Appearance: WD/WN, no apparent distress Head: normocephalic, atraumatic Eyes: PERRL, EOMI, + abnormal sclerae exam (+icterus) ENT: hearing grossly normal, pharynx normal, + pertinent finding (mildly dry mucous membranes) Neck: supple, no JVD, trachea midline Respiratory/Chest: lungs clear, normal breath sounds, no respiratory distress, no accessory muscle use Cardiovascular: regular rate, rhythm, no murmur, normal peripheral pulses Abdomen/GI: normal bowel sounds, non tender, + distended, + pertinent finding ( dull to percusion) Back: no CVA tenderness Extremities/Musculoskelatal: no calf tenderness, normal capillary refill, + pedal edema (2+ bilaterally) Neurologic/Psych: alert, normal mood/affect, oriented x 3, + pertinent finding (no asterixis ) Skin: warm/dry, no rash Diagnostics Laboratory Results Results Past 24 Hours Test 12/30/17 13:40 12/30/17 14:04 Range/Units Urine Color YELLOW Urine Appearance CLOUDY CLEAR Urine pH 5.0 4.5-7.5 Urine Specific Mc[place]ky 1.013 1.000-1.030 Urine Protein NEG NEG Urine Glucose (UA) NEG NEG Urine Ketones NEG NEG Urine Occult Blood NEG NEG Urine Nitrite NEG NEG Urine Bilirubin NEG NEG Urine Urobilinogen NEG NEG Urine Leukocyte Esterase SMALL NEG Urine WBC (Auto) >30 0-5 /hpf Urine RBC (Auto) 0-4 0-4 /hpf Urine Hyaline Casts (Auto) 0-5 /lpf Urine Epithelial Cells (Auto) >30 0-5 /lpf Urine Bacteria (Auto) 1+ NEG Urine Crystals CALCIUM OXALATE NONE PRSENT Urine Pathogenic Casts 0 /lpf White Blood Count 5.24 4.8-10.8 K/uL Red Blood Count 3.32 4.2-5.4 M/uL Hemoglobin 11.1 12.0-16.0 g/dL Hematocrit 30.5 37-47 % Mean Corpuscular Volume 91.9 80-100 fL Mean Corpuscular Hemoglobin 33.4 25-34 pg Mean Corpuscular Hemoglobin Concent 36.4 32-36 g/dl Platelet Count 35 130-400 K/uL Mean Platelet Volume 11.5 7.4-10.4 fL Neutrophils (%) (Auto) 66.4 % Lymphocytes (%) (Auto) 18.7 % Monocytes (%) (Auto) 12.8 % Eosinophils (%) (Auto) 1.7 % Basophils (%) (Auto) 0.2 % Neutrophils # (Auto) 3.48 1.4-6.5 K/uL Lymphocytes # (Auto) 0.98 1.2-3.4 K/uL Monocytes # (Auto) 0.67 0.11-0.59 K/uL Eosinophils # (Auto) 0.09 0-0.5 K/uL Basophils # (Auto) 0.01 0-0.2 K/uL RDW Standard Deviation 48.7 36.4-46.3 fL RDW Coefficient of Variation 14.7 11.5-14.5 % Immature Granulocyte % (Auto) 0.2 % Immature Granulocyte # (Auto) 0.01 0.00-0.02 K/uL Prothrombin Time 12.2 9.0-12.0 SECONDS Prothromb Time International Ratio 1.2 0.9-1.1 Sodium Level 130 136-145 mmol/L Potassium Level 4.8 3.5-5.1 mmol/L Chloride Level 99 98-107 mmol/L Carbon Dioxide Level 19 21-32 mmol/L Anion Gap 13.0 3-11 mmol/L Blood Urea Nitrogen 53 7-18 mg/dl Creatinine 3.10 0.60-1.20 mg/dl Est Creatinine Clear Calc Drug Dose 25.0 ml/min Estimated GFR () 18.3 Estimated GFR (Non- 15.8 BUN/Creatinine Ratio 17.0 10-20 Random Glucose 222 70-99 mg/dl Lactic Acid Level 3.2 0.4-2.0 mmol/L Calcium Level 9.6 8.5-10.1 mg/dl Magnesium Level 1.9 1.8-2.4 mg/dl Total Bilirubin 2.6 0.2-1 mg/dl Direct Bilirubin 1.0 0-0.2 mg/dl Aspartate Amino Transf (AST/SGOT) 54 15-37 U/L Alanine Aminotransferase (ALT/SGPT) 33 12-78 U/L Alkaline Phosphatase 81 45-117 U/L Total Protein 5.9 6.4-8.2 gm/dl Albumin 2.9 3.4-5.0 gm/dl Lipase 324 73-393 U/L Microbiology Results 12/30/17 Urine Culture, Received Pending Diagnostic Radiology CXR: IMPRESSION: No active disease in the chest. CT ABD/PELVIS: IMPRESSION: 1. Cirrhosis with manifestations of portal hypertension including moderate splenomegaly, moderate ascites and varices formation. 2. Suboptimal evaluation of the abdomen and pelvis given the lack of IV contrast. 3. Possible hypodensity within the pancreatic body with upstream pancreatic glandular atrophy and possible pancreatic ductal dilatation which may reflect the known primary pancreatic lesion. 4. Multiple small indeterminate pulmonary nodules. 5. Bilateral nephrolithiasis. 6. Generalized anasarca. EKG EKG: NSR, rate 83, no ST changes noted Read by heel attacher: Normal sinus rhythm Low voltage QRS Borderline ECG No previous ECGs available Confirmed by MILEY CLEMENS ([id number]) on 12/30/2017 2:29:17 PM Impression Assessment and Plan GUILLERMINA Cr: 3.1 today. Was 1.0 on 12/03/17. Pt with poor oral intake recently, has been on diuretics, appears dry today. DDX: hepatorenal syndrome. Pt given 1L NSS then ran at 125ml/hr in ER. -monitor renal functions -avoid nephrotoxic agents when possible -nephrology consult ASCITES/PANCREATIC CA/CIRRHOSIS Hx ESOPHAGEAL VARICES Hx EGD: 10/17 - esophageal varices. Pt not surgical candidate 2/2 comorbidities. Not on chemo. No active bleeding or hx bleeding. No hx encephalopathy and no current encephalopathy symptoms. Pt with increased abdominal distension past 2 weeks, increased LE edema. Total bili: 2.6 (2.6 recently). Direct bili: 1.0. AST: 54 (was 56). INR: 1.2. Today CT ABD/PELVIS: Cirrhosis with manifestations of portal hypertension including moderate splenomegaly, moderate ascites and varices formation. Possible hypodensity within the pancreatic body with upstream pancreatic glandular atrophy and possible pancreatic ductal dilatation which may reflect the known primary pancreatic lesion. Multiple small indeterminate pulmonary nodules. Bilateral nephrolithiasis. Generalized anasarca. No fever or altered mental status. Vitals stable. Don't suspect spontaneous bacterial peritonitis at this time -repeat electrolytes and liver profile, magnesium lab in am -GI consult, appreciate input POSSIBLE UTI U/A: Small leuk, WBC >30, epi>30, 1+bacteria. Pt denies urinary symptoms. No fever/tachycardia. No leukocytosis. Pt given Rocephin in ER. Lactic acid: 3.2. Will repeat lactic acid and add procalcitonin, suspect will be decreased after IVF. -pending urine culture -will treat with rocephin currently, pending urine culture THROMBOCYTOPENIA Plt: 35. Has been in 20's. No active bleeding -continue to monitor CBC HYPONATREMIA Na: 130. Chronic Na in low 130's -continue to monitor electrolytes DM II HA1c was 8.6 on 10/2017. -hold metformin and Januvia -NovoLog sliding scale DYSLIPIDEMIA -hold zetia at this time with child-tucker score 9 HTN Stable. -hold HCTZ, spironolactone with GUILLERMINA -continue metoprolol ANEMIA Hgb: 11.1. Baseline ~11.2. No active bleeding -continue to monitor DVT Prophylaxis -SCDs secondary to thrombocytopenia Disposition admit med surg Full Code as per discussion with pt Follows with Dr Edge for routine care Pt was seen with Dr Rubio. See addendum Advanced Directives Existing Advance Directive: No Resuscitation Status Full code VTE Prophylaxis Will order VTE Prophylaxis: Yes Reason for no VTE drug order: Contraindicated Note ATTENDING ADDENDUM Record reviewed. Patient interviewed and examined. Care coordinated with Carol Almaraz PA-C. Please refer to her documentation for patient's history. Previously, 57-year-old female with history of cirrhosis of the liver attributed to MEAD and carcinoma of the pancreas. Cirrhosis associated with portal hypertension, esophageal varices, ascites, splenomegaly. She experienced increasing abdominal distention and comfort over the past few days associated with significant weight gain. 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 Serum creatinine was 6.0. BUN and creatinine were 53 and 3.0, respectively. Baseline serum creatinine was 1.0 on 12/03/17. Patient referred to the Emergency Department for further evaluation and management. EXAM: General- no acute distress VS- as noted HEENT-sclerae icteric Neck-no JVD Lungs-clear to auscultation and percussion Heart-regular rate and rhythm, II/ systolic murmur at base, no gallop appreciated Abdomen-normal bowel sounds, markedly distended, diffuse mild tenderness, no masses or hepatosplenomegaly appreciated but exam limited due to distention Extremities-2+ pretibial edema, no calf tenderness Neuro-alert, oriented; no asterixis DATA: 12/30/17 14:04 12/30/17 14:04 Total bilirubin 2.6, AST 54, ALT 33, alkaline phosphatase 81. Serum lactate 3.2. Urinalysis showed small amount of leukocyte esterase, WBCs, bacteria, epithelial cells. Other lab studies as noted. Chest x-ray did not show any infiltrates, effusions, CHF. CT of abdomen and pelvis demonstrated cirrhosis, splenomegaly, ascites, varices , possible hypodensity within the pancreatic body, multiple small pulmonary nodules, bilateral renal calculi without hydronephrosis, generalized anasarca. ASSESSMENT AND PLAN: Acute kidney injury. Cirrhosis of the liver on diuretic therapy. Taking ibuprofen for pain. Serum creatinine has risen from 1 to 3 in a few weeks. No urinary tract obstruction per CT of abdomen and pelvis. Differential diagnosis includes prerenal azotemia from diuretic therapy, nonsteroidal nephrotoxicity, hepatorenal syndrome. Received intravenous fluids in ED. Hold diuretic therapy. Check fractional excretion of sodium. Case discussed with Nephrology. IV albumin ordered. Cirrhosis of liver with portal hypertension, ascites, esophageal varices, splenomegaly. Worsening ascites. Consult GI for recommendations. Urinalysis demonstrates leukocyte esterase, WBCs, bacteria, but many epithelial cells. May or may not have a urinary tract infection. Urine culture pending. Received IV ceftriaxone in the ED. Thrombocytopenia is chronic and probably secondary to cirrhosis. No active bleeding at this time. Management of pancreatic cancer per hematology/oncology. Not receiving chemotherapy at this time. Diabetes mellitus managed with metformin. Metformin will be held due to acute kidney injury and lactic acidosis. Insulin coverage per protocol. Please refer to TRACI Jimenez's documentation for discussion of other issues. Blu Rubio MD . Additional Copies To Sal Edge M.D.
[2017-12-30 20:12] VITALS: BP 113/71; PULSE 78; TEMP 36.7; O2SAT 100
[2017-12-30 21:05] VITALS: BP 110/67; PULSE 78; TEMP 36.8; O2SAT 99
[2017-12-30] MEDS: ALBUMIN HUMAN 25% 12.5 GM/50 ML VIAL IV SCH (21:08)
[2017-12-30 22:00] LABS: CALCIUM 9.4 mg/dl (8.5-10.1); CREATININE 2.87 mg/dl (0.60-1.20); POTASSIUM 4.7 mmol/L (3.5-5.1)
[2017-12-30 22:15] VITALS: BP 105/65; PULSE 80; TEMP 36.9; O2SAT 98
[2017-12-30] MEDS: INSULIN ASPART 100 UNITS/ML 3 ML PEN SC SCH (22:15)
[2017-12-30 23:46] VITALS: BP 109/67; PULSE 80; TEMP 36.8; O2SAT 99
[2017-12-30 23:54] LABS: CREATININE RANDOM URINE 87.6 mg/dl
[2017-12-31] VITALS (9 sets, daily range): BP systolic 96–124; BP diastolic 58–77; PULSE 75–82; TEMP 36.4–36.8; O2SAT 90–99; BMI 39.1
[2017-12-31] MEDS: ALBUMIN HUMAN 25% 12.5 GM/50 ML VIAL IV SCH ×3 (04:54→20:49)
[2017-12-31] MEDS: INSULIN GLARGINE SOLOSTAR 100 UNITS/ML 3 ML PEN SC SCH ×2 (08:37→21:42)
[2017-12-31] MEDS: METOPROLOL TARTRATE 50 MG TAB PO SCH (08:37)
[2017-12-31 08:41] LABS: INR 1.3 (0.9-1.1); PTT PATIENT 32.7 SECONDS (21.0-31.0)
[2017-12-31 08:45] LABS: HEMATOCRIT 25.9 % (37-47); HEMOGLOBIN 9.7 g/dL (12.0-16.0); MEAN CELL VOLUME 90.2 fL (80-100); MEAN CORPUSCULAR HEMOGLOBIN 33.8 pg (25-34); MEAN CORPUSCULAR HGB CONC 37.5 g/dl (32-36); MEAN PLATELET VOLUME 11.1 fL (7.4-10.4); PLATELET COUNT 25 K/uL (130-400); RED CELL DISTRIBUTION WIDTH CV 14.6 % (11.5-14.5); RED CELL DISTRIBUTION WIDTH SD 47.9 fL (36.4-46.3)
[2017-12-31 09:05] LABS: ALBUMIN 3.1 gm/dl (3.4-5.0); CALCIUM 9.3 mg/dl (8.5-10.1); CREATININE 2.4 mg/dl (0.60-1.20); POTASSIUM 4.4 mmol/L (3.5-5.1)
[2017-12-31 09:08] LABS: TOTAL PROTEIN 5.5 gm/dl (6.4-8.2)
[2017-12-31] MEDS: INSULIN ASPART 100 UNITS/ML 3 ML PEN SC SCH ×4 (09:14→21:44)
--- NOTE | 2017-12-31 11:32 | Gastrointestinal Consultation ---
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 Pt was seen and evaluated, chart reviewed. Pt notes she has been following with a holistic health practitioner in [place] for palliation as no treatment offers were recommended for her pancreatic CA. She is unsure what supplements she is taking. Over the past month or so has become more weak, fatigued. Notes she has gained 30 lbs in about 2 weeks w/ abdominal bloating and worsening lower extremity edema. No confusion. Good appetite. No nausea, vomiting. Moving bowels well. No black or bloody stools. Diagnosis: Suspected MEAD Decompensations: Varices: yes Ascites: yes, new no history or paracentesis HE: none Screening HCC: UTD Varices: UTD Immunizations: unknown CT ABD/Pelvis 12/30/17: Cirrhosis with manifestations of portal hypertension including moderatesplenomegaly, moderate ascites and varices formation.. Suboptimal evaluation of the abdomen and pelvis given the lack of IV contrast. Possible hypodensity within the pancreatic body with upstream pancreaticglandular atrophy and possible pancreatic ductal dilatation which may reflectthe known primary pancreatic lesion.Multiple small indeterminate pulmonary nodules. Bilateral nephrolithiasis. Generalized anasarca. Past Medical/Surgical History Medical Problems: (1) Acute renal failure Status: Acute (2) Cirrhosis Status: Chronic (3) Pancreatic cancer Status: Chronic Past Medical History: pancreatic CA, cirrhosis, T2DM, dyslipidemia, Past Surgical History: colonoscopy, EGD, EUS, D&C, tonsillectomy, cholecystectomy Family History Diabetes mellitus FH: CAD (coronary artery disease) FH: breast cancer Social History Smoking Status: Never Smoker Drug Use: none Marital Status: Occupation Status: employed Allergies Coded Allergies: Adhesives (Verified Allergy, Unknown, REDNESS TO SKIN,PULLED SKIN OFF- SOME TAPES, 12/30/17) Amoxicillin (Verified Allergy, Unknown, "gives me a urinary tract infection", 12/30/17) Canagliflozin (Verified Allergy, Unknown, AFFECTED LIVER?, 12/30/17) Poison Helga Extract/Poison [place] Extra (Verified Allergy, Unknown, "get a really bad case of it", 12/30/17) Simvastatin (Verified Adverse Reaction, Unknown, AFFECTED LIVER?, 12/30/17) Current Medications Home Meds and Scripts Medications Dose Route/Sig Max Daily Dose Days Date Category Ibuprofen 200 Mg Cap 2 Tab PO BID 12/30/17 Reported Xanax (Alprazolam) 0.5 Mg Tab 1 Tab PO HS PRN 30 12/30/17 Reported Aldactone (Spironolactone) 50 Mg Tab 50 Mg PO DAILY 12/30/17 Reported Januvia (Sitagliptin Phosphate) 100 Mg Tab 100 Mg PO QPM 05/18/17 Reported Lopressor (Metoprolol Tartrate) 50 Mg Tab 50 Mg PO DAILY 05/18/17 Reported Zetia (Ezetimibe) 10 Mg Tab 10 Mg PO HS 05/17/17 Reported Hydrochlorothiazide 12.5 Mg Tab 1 Tab PO DAILY PRN 30 05/17/17 Reported Glucophage (Metformin Hcl) 1,000 Mg Tab 1,000 Mg PO BID 05/17/17 Reported Review of Systems Constitutional: No fever, No chills, No weight loss, No weakness, No fatigue ENT: No unusual epistaxis Respiratory: No cough, No sputum, No shortness of breath, No dyspnea on exertion Cardiac: No chest pain, No orthopnea, No edema, No palpitations Abdomen: + pain (bloating, pressure), No nausea, No vomiting, No diarrhea, No constipation, No GI bleeding, No dysphagia, No odynophagia, No acolic stools, No jaundice Heme: No abnormal bleeding/bruising, No night sweats Endo: + fatigue, No excessive thirst, No excessive urination Skin: + jaundice, No rash, No itch, No bleeding Physical Exam Date Time Temp Pulse Resp B/P (MAP) Pulse Ox O2 Delivery O2 Flow Rate FiO2 12/31/17 08:30 98 Room Air 12/31/17 08:29 36.8 78 16 100/58 (72) 98 12/31/17 04:26 36.8 78 20 117/68 (84) 98 Room Air 12/31/17 01:00 Room Air 12/30/17 23:46 36.8 80 18 109/67 (81) 99 Room Air 12/30/17 22:15 36.9 80 18 105/65 (78) 98 Room Air 12/30/17 21:39 Room Air 12/30/17 21:05 36.8 78 18 110/67 (81) 99 Room Air 12/30/17 20:12 36.7 78 20 113/71 (85) 100 Room Air 12/30/17 18:23 36.7 82 20 120/77 99 Room Air 12/30/17 16:13 84 18 122/65 98 Room Air 12/30/17 15:09 84 18 120/66 98 Room Air 12/30/17 14:24 84 12/30/17 14:10 84 18 120/62 97 Room Air 12/30/17 12:44 36.6 82 18 143/61 99 General Appearance: no apparent distress Eyes: PERRL ENT: hearing grossly normal Neck: supple, no JVD, trachea midline Respiratory/Chest: lungs clear, normal breath sounds, no respiratory distress, no accessory muscle use Cardiovascular: regular rate, rhythm, no gallop, no JVD, no murmur Abdomen: normal bowel sounds, non tender, soft, no organomegaly, no pulsatile mass Neurologic/Psych: alert, normal mood/affect, oriented x 3 Skin: normal color, warm/dry, no rash, + jaundice Laboratory Results Last 24 Hours Test 12/30/17 13:40 12/30/17 14:04 12/30/17 18:55 12/30/17 20:38 Urine Color YELLOW Urine Appearance CLOUDY Urine pH 5.0 Urine Specific [place] 1.013 Urine Protein NEG Urine Glucose (UA) NEG Urine Ketones NEG Urine Occult Blood NEG Urine Nitrite NEG Urine Bilirubin NEG Urine Urobilinogen NEG Urine Leukocyte Esterase SMALL Urine WBC (Auto) >30 /hpf Urine RBC (Auto) 0-4 /hpf Urine Hyaline Casts (Auto) /lpf Urine Epithelial Cells (Auto) >30 /lpf Urine Bacteria (Auto) 1+ Urine Crystals CALCIUM OXALATE Urine Pathogenic Casts /lpf White Blood Count 5.24 K/uL Red Blood Count 3.32 M/uL Hemoglobin 11.1 g/dL Hematocrit 30.5 % Mean Corpuscular Volume 91.9 fL Mean Corpuscular Hemoglobin 33.4 pg Mean Corpuscular Hemoglobin Concent 36.4 g/dl Platelet Count 35 K/uL Mean Platelet Volume 11.5 fL Neutrophils (%) (Auto) 66.4 % Lymphocytes (%) (Auto) 18.7 % Monocytes (%) (Auto) 12.8 % Eosinophils (%) (Auto) 1.7 % Basophils (%) (Auto) 0.2 % Neutrophils # (Auto) 3.48 K/uL Lymphocytes # (Auto) 0.98 K/uL Monocytes # (Auto) 0.67 K/uL Eosinophils # (Auto) 0.09 K/uL Basophils # (Auto) 0.01 K/uL RDW Standard Deviation 48.7 fL RDW Coefficient of Variation 14.7 % Immature Granulocyte % (Auto) 0.2 % Immature Granulocyte # (Auto) 0.01 K/uL Prothrombin Time 12.2 SECONDS Prothromb Time International Ratio 1.2 Sodium Level 130 mmol/L Potassium Level 4.8 mmol/L Chloride Level 99 mmol/L Carbon Dioxide Level 19 mmol/L Anion Gap 13.0 mmol/L Blood Urea Nitrogen 53 mg/dl Creatinine 3.10 mg/dl Est Creatinine Clear Calc Drug Dose 25.0 ml/min Estimated GFR () 18.3 Estimated GFR (Non- 15.8 BUN/Creatinine Ratio 17.0 Random Glucose 222 mg/dl Lactic Acid Level 3.2 mmol/L 2.7 mmol/L Calcium Level 9.6 mg/dl Magnesium Level 1.9 mg/dl Total Bilirubin 2.6 mg/dl Direct Bilirubin 1.0 mg/dl Aspartate Amino Transf (AST/SGOT) 54 U/L Alanine Aminotransferase (ALT/SGPT) 33 U/L Alkaline Phosphatase 81 U/L Total Protein 5.9 gm/dl Albumin 2.9 gm/dl Lipase 324 U/L Procalcitonin 0.11 ng/ml Bedside Glucose 223 mg/dl Test 12/30/17 21:35 12/30/17 23:20 12/31/17 08:21 12/31/17 08:35 Sodium Level 131 mmol/L 134 mmol/L Potassium Level 4.7 mmol/L 4.4 mmol/L Chloride Level 100 mmol/L 103 mmol/L Carbon Dioxide Level 21 mmol/L 20 mmol/L Anion Gap 10.0 mmol/L 12.0 mmol/L Blood Urea Nitrogen 50 mg/dl 46 mg/dl Creatinine 2.87 mg/dl 2.40 mg/dl Est Creatinine Clear Calc Drug Dose 27.0 ml/min 32.1 ml/min Estimated GFR () 20.1 25.0 Estimated GFR (Non- 17.3 21.5 BUN/Creatinine Ratio 17.5 19.3 Random Glucose 205 mg/dl 158 mg/dl Calcium Level 9.4 mg/dl 9.3 mg/dl Urine Color YELLOW Urine Appearance CLEAR Urine pH 5.0 Urine Specific [place] 1.011 Urine Protein NEG Urine Glucose (UA) NEG Urine Ketones NEG Urine Occult Blood NEG Urine Nitrite NEG Urine Bilirubin NEG Urine Urobilinogen NEG Urine Leukocyte Esterase TRACE Urine WBC (Auto) 5-10 /hpf Urine RBC (Auto) 0-4 /hpf Urine Hyaline Casts (Auto) 5-10 /lpf Urine Epithelial Cells (Auto) >30 /lpf Urine Bacteria (Auto) NEG Urine Random Creatinine 87.6 mg/dl Urine Random Sodium 45 mEq/L White Blood Count 4.20 K/uL Red Blood Count 2.87 M/uL Hemoglobin 9.7 g/dL Hematocrit 25.9 % Mean Corpuscular Volume 90.2 fL Mean Corpuscular Hemoglobin 33.8 pg Mean Corpuscular Hemoglobin Concent 37.5 g/dl RDW Standard Deviation 47.9 fL RDW Coefficient of Variation 14.6 % Platelet Count 25 K/uL Mean Platelet Volume 11.1 fL Prothrombin Time 13.4 SECONDS Prothromb Time International Ratio 1.3 Activated Partial Thromboplast Time 32.7 SECONDS Partial Thromboplastin Ratio 1.3 Magnesium Level 1.9 mg/dl Total Bilirubin 2.5 mg/dl Direct Bilirubin 0.9 mg/dl Aspartate Amino Transf (AST/SGOT) 41 U/L Alanine Aminotransferase (ALT/SGPT) 27 U/L Alkaline Phosphatase 61 U/L Total Protein 5.5 gm/dl Albumin 3.1 gm/dl Globulin 2.4 gm/dl Albumin/Globulin Ratio 1.3 Bedside Glucose 171 mg/dl Impression Patient is a 57 year old female with history of thrombocytopenia, newly diagnosed liver cirrhosis (etiology unclear) and pancreatic adenocarcinoma (not deemed a surgical or medical management candidate due to her cirrhosis) sent to the ED for abnormal labs, GUILLERMINA, will need to rule out HRS given diuretic use and underlying cirrhosis Plan - Electrolyte management per the primary service - GUILLEMRINA Management - Hold diuretics - Random urine NA 45 - Not compatible with HRS - Consult nephrology based off of trending - Daily CMP - Albumin 25% 25G TID - Ascites Management - Less than 2G NA daily - hepatic duplex - Pt would like to have a paracentesis for comfort - Will defer this today as her platelets dropped overnight - Will need platelets above 50 w/ INR less than 1.6 for diagnostic/ therapeutic paracentesis - Plat[facility] and FFP can be arranged over the weekend for paracentesis Wednesday - cell count, cytology, culture, protein, albumin - albumin 25% 25G before and after - Cirrhosis Management - less than 2G tylenol daily - check supplements with GI prior to continued use - HCC screen every 6 months - Immunizations towards Hep A/Hep B GI to follow, please call with any acute changes, questions or concerns.
[2017-12-31] MEDS: CEFTRIAXONE SOD INJ 1 GM in DEXTROSE 5% ADD-VANTAGE 50ML 50 ML IV SCH (13:17)
--- NOTE | 2017-12-31 13:54 | Nephrology Consultation ---
Nephrology Consultation Date of Consultation: Dec 31, 2017. Attending Physician: Dr Dukes Requesting Physician: Dr Rubio Reason for Consultation: GUILLERMINA History of Present Illness 57 year old female w/ liver cirrhosis from MEAD, inoperable Stage 4 pancreatic CA, DM on po meds, HTN sent for admission yesterday after outpt labs at oncology clinic showed K 6.0, creat 3.0, Na 132. Her baseline creatinine in fall 2016 and for preceding 2 years is 0.5-0.6. In 11/2017, creatinine was 0.7; up to 1.0 in 12/2017. She was on metformin, hctz, spironolactone prior to admission and has also been using ibuprofen. On admission here last evening her creatinine was 3.1 w/ K 4.8, lactate 3.2, Na 130. This am her sNa is 134, K 4.4, creatinine 2.4. Aforementioned meds were held at admission. She had a L of NS then it was continued at 100 mL hourly. Albumin 12.5 gm 25% q8 hrs also started. She has been taking 2-4 ibuprofen daily prior to admission; states she'd been told this was better to use than tylenol. Has also been using wholistic provider prior to admission w/ some supplement use. Past Medical/Surgical History Medical Problems: (1) Acute renal failure Status: Acute (2) Cirrhosis Status: Chronic (3) Pancreatic cancer Status: Chronic -DM on po meds -obesity -MEAD cirrhosis -stage 4 pancreatic CA -progressive renal insufficiency over at least 2 mos prior to admission Family History Diabetes mellitus FH: CAD (coronary artery disease) FH: breast cancer Social History Smoking Status: Never Smoker Alcohol Use: none Drug Use: none Marital Status: Housing Status: lives with family Occupation Status: employed Allergies Coded Allergies: Adhesives (Verified Allergy, Unknown, REDNESS TO SKIN,PULLED SKIN OFF- SOME TAPES, 12/30/17) Amoxicillin (Verified Allergy, Unknown, "gives me a urinary tract infection", 12/30/17) Canagliflozin (Verified Allergy, Unknown, AFFECTED LIVER?, 12/30/17) Poison Helga Extract/Poison [place] Extra (Verified Allergy, Unknown, "get a really bad case of it", 12/30/17) Simvastatin (Verified Adverse Reaction, Unknown, AFFECTED LIVER?, 12/30/17) Medications Current Inpatient Medications Medications (Trade) Dose Ordered Sig/Ngoc Route Start Time Stop Time Status Last Admin Dose Admin Polyethylene (Miralax Powder Packet) 17 gm DAILY PRN PO 12/30/17 17:15 01/29/18 17:14 Ondansetron HCl (Zofran Inj) 4 mg Q6H PRN IV 12/30/17 17:15 01/29/18 17:14 Insulin Aspart (novoLOG ASPART) SLIDING SCALE If C... ACHS SC 12/30/17 21:00 01/29/18 20:59 12/31/17 09:14 1 UNITS Glucose (Glucose 40% Gel) 15-30 GRAMS 15 GRAMS... UD PRN PO 12/30/17 17:45 01/29/18 17:44 Glucose (Glucose Chew Tab) 4-8 Tablets 4 Tabl... UD PRN PO 12/30/17 17:45 01/29/18 17:44 Dextrose (Dextrose 50% 50ML Syringe) 25-50ML OF 50% DW IV FOR... UD PRN IV 12/30/17 17:45 01/29/18 17:44 Glucagon (Glucagon Inj) 1 mg UD PRN SQ 12/30/17 17:45 01/29/18 17:44 Metoprolol Tartrate (Lopressor Tab) 50 mg DAILY PO 12/31/17 08:00 01/30/18 08:59 Ceftriaxone Sodium 1 gm/ Dextrose 50 ml @ 100 mls/hr Q24H IV 12/31/17 14:00 01/05/18 13:59 Albumin Human (Albumin 25%) 25 gm Q8H IV 12/30/17 20:15 01/02/18 20:14 12/31/17 11:18 25 GM Insulin Glargine (Lantus Solostar Pen) 10 units BID SC 12/31/17 08:00 01/30/18 07:59 Home Meds and Scripts Medications Dose Route/Sig Max Daily Dose Days Date Category Ibuprofen 200 Mg Cap 2 Tab PO BID 12/30/17 Reported Xanax (Alprazolam) 0.5 Mg Tab 1 Tab PO HS PRN 30 12/30/17 Reported Aldactone (Spironolactone) 50 Mg Tab 50 Mg PO DAILY 12/30/17 Reported Januvia (Sitagliptin Phosphate) 100 Mg Tab 100 Mg PO QPM 05/18/17 Reported Lopressor (Metoprolol Tartrate) 50 Mg Tab 50 Mg PO DAILY 05/18/17 Reported Zetia (Ezetimibe) 10 Mg Tab 10 Mg PO HS 05/17/17 Reported Hydrochlorothiazide 12.5 Mg Tab 1 Tab PO DAILY PRN 30 05/17/17 Reported Glucophage (Metformin Hcl) 1,000 Mg Tab 1,000 Mg PO BID 05/17/17 Reported Review of Systems Constitutional: + weakness, No fever, No chills, No fatigue Eyes: No worsening of vision ENT: No sore throat Respiratory: No cough, No shortness of breath Cardiac: + edema (improved from yesterday w/ TEDS on), No chest pain, No palpitations Abdomen: + problem reported (ascites +), No pain, No nausea, No vomiting Musculoskeletal: No joint pain, No muscle pain Female : No dysuria, No urinary frequency, No hematuria Neuro: No memory loss, No weakness, No balance problems Psych: + depression symptoms, + anxiety Heme: No abnormal bleeding/bruising Endo: + fatigue Skin: No rash, No itch Physical Exam Date Time Temp Pulse Resp B/P (MAP) Pulse Ox O2 Delivery O2 Flow Rate FiO2 12/31/17 11:15 36.6 76 20 115/72 (86) 92 Room Air 12/31/17 08:30 98 Room Air 12/31/17 08:29 36.8 78 16 100/58 (72) 98 12/31/17 04:26 36.8 78 20 117/68 (84) 98 Room Air 12/31/17 01:00 Room Air 12/30/17 23:46 36.8 80 18 109/67 (81) 99 Room Air 12/30/17 22:15 36.9 80 18 105/65 (78) 98 Room Air 12/30/17 21:39 Room Air 12/30/17 21:05 36.8 78 18 110/67 (81) 99 Room Air 12/30/17 20:12 36.7 78 20 113/71 (85) 100 Room Air 12/30/17 18:23 36.7 82 20 120/77 99 Room Air 12/30/17 16:13 84 18 122/65 98 Room Air 12/30/17 15:09 84 18 120/66 98 Room Air 12/30/17 14:24 84 12/30/17 14:10 84 18 120/62 97 Room Air 12/30/17 12:44 36.6 82 18 143/61 99 General Appearance: WD/WN, no apparent distress, + obese (on RA, maneuvers readily for exam) Eyes: EOMI ENT: hearing grossly normal Neck: supple Respiratory/Chest: lungs clear Cardiovascular: regular rate, rhythm, + pertinent finding (trace BL ankle edema in teds) Abdomen: normal bowel sounds, non tender, soft, + pertinent finding (+fluid wave) Extremities: normal range of motion, non-tender, + pedal edema (trace) Neurologic/Psych: alert, normal mood/affect, oriented x 3 Skin: no jaundice, warm/dry, + pallor Diagnostics Last 24 Hours Test 12/30/17 13:40 12/30/17 14:04 12/30/17 18:55 12/30/17 20:38 Urine Color YELLOW Urine Appearance CLOUDY Urine pH 5.0 Urine Specific [place] 1.013 Urine Protein NEG Urine Glucose (UA) NEG Urine Ketones NEG Urine Occult Blood NEG Urine Nitrite NEG Urine Bilirubin NEG Urine Urobilinogen NEG Urine Leukocyte Esterase SMALL Urine WBC (Auto) >30 /hpf Urine RBC (Auto) 0-4 /hpf Urine Hyaline Casts (Auto) /lpf Urine Epithelial Cells (Auto) >30 /lpf Urine Bacteria (Auto) 1+ Urine Crystals CALCIUM OXALATE Urine Pathogenic Casts /lpf White Blood Count 5.24 K/uL Red Blood Count 3.32 M/uL Hemoglobin 11.1 g/dL Hematocrit 30.5 % Mean Corpuscular Volume 91.9 fL Mean Corpuscular Hemoglobin 33.4 pg Mean Corpuscular Hemoglobin Concent 36.4 g/dl Platelet Count 35 K/uL Mean Platelet Volume 11.5 fL Neutrophils (%) (Auto) 66.4 % Lymphocytes (%) (Auto) 18.7 % Monocytes (%) (Auto) 12.8 % Eosinophils (%) (Auto) 1.7 % Basophils (%) (Auto) 0.2 % Neutrophils # (Auto) 3.48 K/uL Lymphocytes # (Auto) 0.98 K/uL Monocytes # (Auto) 0.67 K/uL Eosinophils # (Auto) 0.09 K/uL Basophils # (Auto) 0.01 K/uL RDW Standard Deviation 48.7 fL RDW Coefficient of Variation 14.7 % Immature Granulocyte % (Auto) 0.2 % Immature Granulocyte # (Auto) 0.01 K/uL Prothrombin Time 12.2 SECONDS Prothromb Time International Ratio 1.2 Sodium Level 130 mmol/L Potassium Level 4.8 mmol/L Chloride Level 99 mmol/L Carbon Dioxide Level 19 mmol/L Anion Gap 13.0 mmol/L Blood Urea Nitrogen 53 mg/dl Creatinine 3.10 mg/dl Est Creatinine Clear Calc Drug Dose 25.0 ml/min Estimated GFR () 18.3 Estimated GFR (Non- 15.8 BUN/Creatinine Ratio 17.0 Random Glucose 222 mg/dl Lactic Acid Level 3.2 mmol/L 2.7 mmol/L Calcium Level 9.6 mg/dl Magnesium Level 1.9 mg/dl Total Bilirubin 2.6 mg/dl Direct Bilirubin 1.0 mg/dl Aspartate Amino Transf (AST/SGOT) 54 U/L Alanine Aminotransferase (ALT/SGPT) 33 U/L Alkaline Phosphatase 81 U/L Total Protein 5.9 gm/dl Albumin 2.9 gm/dl Lipase 324 U/L Procalcitonin 0.11 ng/ml Bedside Glucose 223 mg/dl Test 12/30/17 21:35 12/30/17 23:20 12/31/17 08:21 12/31/17 08:35 Sodium Level 131 mmol/L 134 mmol/L Potassium Level 4.7 mmol/L 4.4 mmol/L Chloride Level 100 mmol/L 103 mmol/L Carbon Dioxide Level 21 mmol/L 20 mmol/L Anion Gap 10.0 mmol/L 12.0 mmol/L Blood Urea Nitrogen 50 mg/dl 46 mg/dl Creatinine 2.87 mg/dl 2.40 mg/dl Est Creatinine Clear Calc Drug Dose 27.0 ml/min 32.1 ml/min Estimated GFR () 20.1 25.0 Estimated GFR (Non- 17.3 21.5 BUN/Creatinine Ratio 17.5 19.3 Random Glucose 205 mg/dl 158 mg/dl Calcium Level 9.4 mg/dl 9.3 mg/dl Urine Color YELLOW Urine Appearance CLEAR Urine pH 5.0 Urine Specific [place] 1.011 Urine Protein NEG Urine Glucose (UA) NEG Urine Ketones NEG Urine Occult Blood NEG Urine Nitrite NEG Urine Bilirubin NEG Urine Urobilinogen NEG Urine Leukocyte Esterase TRACE Urine WBC (Auto) 5-10 /hpf Urine RBC (Auto) 0-4 /hpf Urine Hyaline Casts (Auto) 5-10 /lpf Urine Epithelial Cells (Auto) >30 /lpf Urine Bacteria (Auto) NEG Urine Random Creatinine 87.6 mg/dl Urine Random Sodium 45 mEq/L White Blood Count 4.20 K/uL Red Blood Count 2.87 M/uL Hemoglobin 9.7 g/dL Hematocrit 25.9 % Mean Corpuscular Volume 90.2 fL Mean Corpuscular Hemoglobin 33.8 pg Mean Corpuscular Hemoglobin Concent 37.5 g/dl RDW Standard Deviation 47.9 fL RDW Coefficient of Variation 14.6 % Platelet Count 25 K/uL Mean Platelet Volume 11.1 fL Prothrombin Time 13.4 SECONDS Prothromb Time International Ratio 1.3 Activated Partial Thromboplast Time 32.7 SECONDS Partial Thromboplastin Ratio 1.3 Magnesium Level 1.9 mg/dl Total Bilirubin 2.5 mg/dl Direct Bilirubin 0.9 mg/dl Aspartate Amino Transf (AST/SGOT) 41 U/L Alanine Aminotransferase (ALT/SGPT) 27 U/L Alkaline Phosphatase 61 U/L Total Protein 5.5 gm/dl Albumin 3.1 gm/dl Globulin 2.4 gm/dl Albumin/Globulin Ratio 1.3 Bedside Glucose 171 mg/dl Test 12/31/17 11:43 Bedside Glucose 170 mg/dl Diagnostic Radiology: CT abd/pelvis non con >> liver cirrhosis w/ portal HTN, ascites; anasarca; indeterminate (w/ lack of iv contrast) pancreatic lesion, multiple pulmonary nodules (avg sz about 5 mm); BL nonobstructing nephrolithiasis CXR > no acute CP disease Assessment & Plan 57 y/o F w/ stage 4 pancreatic CA, liver cirrhosis, anasarca, DM, HTN admitted after outpt labs showed creatinine 3.0, K 6. Her baseline creatinine is 0.5- 0.6 for years up to fall 2016 when it began slow upward progression most recently to about 1.0 one month back. She is responding to volume repletion w/ NS and albumin but had signs of vol OL already on presentation. Improving but severe GUILLERMINA probably not oliguric in the setting of advanced liver disease, dm, advanced cancer w/ anasarca; hyperkalemia and hyponatremia from admission resolving/resolved as well. -stop NS -cont albumin at least another 24 hrs current dose -daily bmp -strict I/O -no indication for acute dialysis -she currently has an NPO order >> when taking po, recommend <2gm daily Na diet and 1.2L fluid restriction -cont to hold hctz, spironolactone, metformin -educated her AGAINST using nsaids and more than 2 gm daily tylenol as outpt Ascites -for paracentesis on 01/03 if plts are appropriate -Na/ fluid limits as above Thrombocytopenia -plts have been in 20-30K range since about 10/2017 >> doubt this relates to renal dysfunction; more likely to liver disease -note GI parameters for plts prior to paracentesis Appreciate consult; will follow with you.
--- NOTE | 2017-12-31 16:44 | DIAGNOSTIC IMAGING REPORT ---
VENOUS DOPPLER LWR EXT BILA CLINICAL HISTORY: 57 years-old Female presenting with edema. TECHNIQUE: Real-time grayscale and color and spectral Doppler ultrasound imaging of the veins of the bilateral lower extremities was performed. Compression and augmentation were also utilized. COMPARISON: None. FINDINGS: Right: Common femoral vein: Patent. Greater saphenous vein: Patent. Deep femoral vein: Patent. Femoral vein: Patent. Popliteal vein: Patent. Calf veins: Limited visualization. Left: Common femoral vein: Patent. Greater saphenous vein: Patent. Deep femoral vein: Patent. Femoral vein: Patent. Popliteal vein: Patent. Calf veins: Limited visualization. Other: None. IMPRESSION: No evidence of deep venous thrombosis. Electronically signed by: Good Arroyo M.D. 12/31/2017 4:43 PM Dictated Date/Time: 12/31/2017 4:42 PM
--- NOTE | 2017-12-31 16:50 | DIAGNOSTIC IMAGING REPORT ---
DUPLEX PORTAL HEPATIC VEINS CLINICAL HISTORY: 57 years-old Female presenting with new ascites. TECHNIQUE: Real-time grayscale and color an spectral Doppler ultrasound imaging of the upper abdomen was performed for a focused duplex Doppler evaluation of the liver. COMPARISON: CT performed the previous day. FINDINGS: Hepatic veins: Patent. Normal triphasic waveforms in the right, middle, and left hepatic veins. Portal veins: Main portal vein patent with normal antegrade flow and gentle undulating waveforms with a maximum velocity of approximately 20 cm/s. Right and left portal veins patent with normal directional flow. Hepatic artery: Patent with normal peak systolic velocity of 62 cm/s. Normal waveform. Splenic vein: Patent with normal directional flow. Liver: Nodular contour consistent with cirrhosis. Other: Ascites. IMPRESSION: Cirrhosis with patent hepatic vasculature and normal directional flow. Electronically signed by: Good Arroyo M.D. 12/31/2017 4:48 PM Dictated Date/Time: 12/31/2017 4:43 PM
--- NOTE | 2017-12-31 17:57 | Progress Note ---
Internal Med Progress Note Date of Service: Dec 31, 2017. Provider Documentation: SUBJECTIVE: resting comfortably denies any nausea or abdominal pain no chest pain or sob afebrile no blood in stools OBJECTIVE: Vital Signs-as noted below Exam: General-alert and oriented not in distress Neck-no neck masses Lungs-cta b/l no wheezing or crackles Heart-s1 and s2 heard tachycardia no murmurs Abdomen-soft bowel sounds present non tender distended Extremities-lower extremity edema present no erythema Neuro-alert and oriented moves extremities Lab data as noted below. ASSESSMENT & PLAN: GUILLERMINA Presented with Cr: 3.1 today. Was 1.0 on 12/03/17. received fluids no nephrotoxic agent cr 2.4 today on iv albumin random urine sodium 45-possibly not HRS Nephrology on board f/u labs. ASCITES/PANCREATIC CA/CIRRHOSIS Hx ESOPHAGEAL VARICES Hx EGD: 10/17 - esophageal varices. Pt not surgical candidate 2/2 comorbidities. Not on chemo. No active bleeding low sodium diet not on diuretics secondary to ARF plan for paracenteses on Wednesday- may need to give platelets and FFP prior to paracentesis GI consulted and appreciate input POSSIBLE UTI on Rocephin await urine cx. THROMBOCYTOPENIA Plt: 25. will f/u cbc. HYPONATREMIA Na: 134. Chronic Na in low 130's will monitor. DM II HA1c was 8.6 on 10/2017. holding metformin and Januvia NovoLog sliding scale DYSLIPIDEMIA holding zetia at this time with child-tucker score 9 HTN Stable. holding HCTZ, spironolactone with GUILLERMINA to continue metoprolol ANEMIA chronic Hgb:9.7. Baseline ~11.2. No active bleeding will monitor DVT Prophylaxis SCDs secondary to thrombocytopenia DISPOSITION to be determined Vital Signs: Date Time Temp Pulse Resp B/P (MAP) Pulse Ox O2 Delivery O2 Flow Rate FiO2 12/31/17 15:31 36.6 79 16 121/77 (92) 98 12/31/17 12:15 36.4 77 20 110/72 (85) 96 Room Air 12/31/17 11:45 36.5 77 112/70 (84) 96 Room Air 12/31/17 11:15 36.6 76 20 115/72 (86) 92 Room Air 12/31/17 08:30 98 Room Air 12/31/17 08:29 36.8 78 16 100/58 (72) 98 12/31/17 04:26 36.8 78 20 117/68 (84) 98 Room Air 12/31/17 01:00 Room Air 12/30/17 23:46 36.8 80 18 109/67 (81) 99 Room Air 12/30/17 22:15 36.9 80 18 105/65 (78) 98 Room Air 12/30/17 21:39 Room Air 12/30/17 21:05 36.8 78 18 110/67 (81) 99 Room Air 12/30/17 20:12 36.7 78 20 113/71 (85) 100 Room Air 12/30/17 18:23 36.7 82 20 120/77 99 Room Air Lab Results: Results Past 24 Hours Test 12/30/17 18:55 12/30/17 20:38 12/30/17 21:35 12/30/17 23:20 Range/Units Lactic Acid Level 2.7 0.4-2.0 mmol/L Procalcitonin 0.11 0-0.5 ng/ml Bedside Glucose 223 70-90 mg/dl Sodium Level 131 136-145 mmol/L Potassium Level 4.7 3.5-5.1 mmol/L Chloride Level 100 98-107 mmol/L Carbon Dioxide Level 21 21-32 mmol/L Anion Gap 10.0 3-11 mmol/L Blood Urea Nitrogen 50 7-18 mg/dl Creatinine 2.87 0.60-1.20 mg/dl Est Creatinine Clear Calc Drug Dose 27.0 ml/min Estimated GFR () 20.1 Estimated GFR (Non- 17.3 BUN/Creatinine Ratio 17.5 10-20 Random Glucose 205 70-99 mg/dl Calcium Level 9.4 8.5-10.1 mg/dl Urine Color YELLOW Urine Appearance CLEAR CLEAR Urine pH 5.0 4.5-7.5 Urine Specific Sully 1.011 1.000-1.030 Urine Protein NEG NEG Urine Glucose (UA) NEG NEG Urine Ketones NEG NEG Urine Occult Blood NEG NEG Urine Nitrite NEG NEG Urine Bilirubin NEG NEG Urine Urobilinogen NEG NEG Urine Leukocyte Esterase TRACE NEG Urine WBC (Auto) 5-10 0-5 /hpf Urine RBC (Auto) 0-4 0-4 /hpf Urine Hyaline Casts (Auto) 5-10 0-5 /lpf Urine Epithelial Cells (Auto) >30 0-5 /lpf Urine Bacteria (Auto) NEG NEG Urine Random Creatinine 87.6 mg/dl Urine Random Sodium 45 mEq/L Test 12/31/17 08:21 12/31/17 08:35 12/31/17 11:43 12/31/17 17:06 Range/Units White Blood Count 4.20 4.8-10.8 K/uL Red Blood Count 2.87 4.2-5.4 M/uL Hemoglobin 9.7 12.0-16.0 g/dL Hematocrit 25.9 37-47 % Mean Corpuscular Volume 90.2 80-100 fL Mean Corpuscular Hemoglobin 33.8 25-34 pg Mean Corpuscular Hemoglobin Concent 37.5 32-36 g/dl RDW Standard Deviation 47.9 36.4-46.3 fL RDW Coefficient of Variation 14.6 11.5-14.5 % Platelet Count 25 130-400 K/uL Mean Platelet Volume 11.1 7.4-10.4 fL Prothrombin Time 13.4 9.0-12.0 SECONDS Prothromb Time International Ratio 1.3 0.9-1.1 Activated Partial Thromboplast Time 32.7 21.0-31.0 SECONDS Partial Thromboplastin Ratio 1.3 Sodium Level 134 136-145 mmol/L Potassium Level 4.4 3.5-5.1 mmol/L Chloride Level 103 98-107 mmol/L Carbon Dioxide Level 20 21-32 mmol/L Anion Gap 12.0 3-11 mmol/L Blood Urea Nitrogen 46 7-18 mg/dl Creatinine 2.40 0.60-1.20 mg/dl Est Creatinine Clear Calc Drug Dose 32.1 ml/min Estimated GFR () 25.0 Estimated GFR (Non- 21.5 BUN/Creatinine Ratio 19.3 10-20 Random Glucose 158 70-99 mg/dl Calcium Level 9.3 8.5-10.1 mg/dl Magnesium Level 1.9 1.8-2.4 mg/dl Total Bilirubin 2.5 0.2-1 mg/dl Direct Bilirubin 0.9 0-0.2 mg/dl Aspartate Amino Transf (AST/SGOT) 41 15-37 U/L Alanine Aminotransferase (ALT/SGPT) 27 12-78 U/L Alkaline Phosphatase 61 45-117 U/L Total Protein 5.5 6.4-8.2 gm/dl Albumin 3.1 3.4-5.0 gm/dl Globulin 2.4 2.5-4.0 gm/dl Albumin/Globulin Ratio 1.3 0.9-2 Bedside Glucose 171 170 170 70-90 mg/dl
[2018-01-01] VITALS (8 sets, daily range): BP systolic 100–130; BP diastolic 57–75; PULSE 73–89; TEMP 36.7–37.2; O2SAT 97–100; Ht 167.6 cm; Wt 107.3 kg
[2018-01-01] MEDS: ALBUMIN HUMAN 25% 12.5 GM/50 ML VIAL IV SCH ×3 (04:39→20:24)
[2018-01-01 07:00] LABS: ALBUMIN 3.2 gm/dl (3.4-5.0); CALCIUM 9.1 mg/dl (8.5-10.1); CREATININE 1.96 mg/dl (0.60-1.20); POTASSIUM 4.4 mmol/L (3.5-5.1)
[2018-01-01 07:02] LABS: TOTAL PROTEIN 5.5 gm/dl (6.4-8.2)
[2018-01-01 08:17] LABS: HEMATOCRIT 24.4 % (37-47); HEMOGLOBIN 8.8 g/dL (12.0-16.0); MEAN CELL VOLUME 93.1 fL (80-100); MEAN CORPUSCULAR HEMOGLOBIN 33.6 pg (25-34); MEAN CORPUSCULAR HGB CONC 36.1 g/dl (32-36); MEAN PLATELET VOLUME 11.7 fL (7.4-10.4); PLATELET COUNT 22 K/uL (130-400); RED CELL DISTRIBUTION WIDTH CV 14.9 % (11.5-14.5); RED CELL DISTRIBUTION WIDTH SD 50.2 fL (36.4-46.3); WHITE BLOOD COUNT 3.39 K/uL (4.8-10.8)
[2018-01-01 08:39] LABS: BASO % 0.3 %; BASO ABS # 0.01 K/uL (0-0.2); EOS % 2.4 %; EOS ABS # 0.08 K/uL (0-0.5); LYMPH ABS # 0.78 K/uL (1.2-3.4); MONO % 16.8 %; MONO ABS # 0.57 K/uL (0.11-0.59); NEUT % 57.5 %; NEUT ABS # 1.95 K/uL (1.4-6.5)
[2018-01-01] MEDS: METOPROLOL TARTRATE 50 MG TAB PO SCH (08:59)
[2018-01-01] MEDS: INSULIN ASPART 100 UNITS/ML 3 ML PEN SC SCH ×4 (09:02→21:00)
[2018-01-01] MEDS: INSULIN GLARGINE SOLOSTAR 100 UNITS/ML 3 ML PEN SC SCH ×2 (09:03→21:16)
--- NOTE | 2018-01-01 13:19 | GASTROENTEROLOGY PROGRESS NOTE ---
DATE: 01/01/2018 CROSS COVERAGE FOR: Mauricio MESSINA. RACE: . I had the pleasure of seeing Edwina Fountain at her bedside. She states that her abdominal pain has significantly improved. She denies any fevers, chills, nausea, vomiting, hematemesis, melena or hematochezia and states that she is tolerating p.o. intake. She denies any further complaints. PHYSICAL EXAMINATION: VITAL SIGNS: Temp 36.7, pulse 76, respirations 18, blood pressure 123/74, pulse ox 99% on room air. GENERAL: Awake, cooperative, no acute distress. ABDOMEN: Soft, nontender, nondistended. Positive bowel sounds. LABORATORY STUDIES: From today include a white blood cell count of 3.39, hemoglobin 8.8, hematocrit 24.4 and a platelet count of 22. Sodium 135, potassium 4.4, chloride 106, bicarbonate 19, BUN 41, creatinine 1.96, and blood glucose 135. Liver panel is unremarkable with the exception of a slightly elevated total bilirubin of 2.6, direct bilirubin of 0.9, and AST of 43. IMPRESSION: This is a 57-year-old female with thrombocytopenia, newly diagnosed cirrhosis and pancreatic adenocarcinoma. PLAN: Currently, she is on a 2 gram sodium-reduced diet. She was scheduled to have a paracentesis; however, due to a low platelet count and INR greater than 1.5, this was held. I would recommend continuing supportive care. Her symptoms seem to have improved, per the patient. I will follow her clinical course and make further recommendations as needed. Paracentesis may be performed early next week, though I will defer this to the performing physician in radiology.
[2018-01-01] MEDS: CEFTRIAXONE SOD INJ 1 GM in DEXTROSE 5% ADD-VANTAGE 50ML 50 ML IV SCH (14:48)
--- NOTE | 2018-01-01 18:14 | Progress Note ---
Internal Med Progress Note Date of Service: Jan 01, 2018. Provider Documentation: SUBJECTIVE: resting comfortably ambulating in room ok denies any nausea or sob or chest pain afebrile eating ok denies complaints OBJECTIVE: Vital Signs-as noted below Exam: General-alert and oriented not in distress Neck-no neck masses Lungs-cta b/l no wheezing or crackles Heart-s1 and s2 heard tachycardia no murmurs Abdomen-soft bowel sounds present non tender distended Extremities-lower extremity edema present no erythema Neuro-alert and oriented moves extremities Lab data as noted below. ASSESSMENT & PLAN: GUILLERMINA Presented with Cr: 3.1 today. Was 1.0 on 12/03/17. received fluids no nephrotoxic agent cr1.9 today on iv albumin random urine sodium 45-possibly not HRS Nephrology on board f/u labs. ASCITES/PANCREATIC CA/CIRRHOSIS Hx ESOPHAGEAL VARICES Hx EGD: 10/17 - esophageal varices. Pt not surgical candidate 2/2 comorbidities. Not on chemo. No active bleeding low sodium diet not on diuretics secondary to ARF plan for paracenteses on Wednesday- may need to give platelets and FFP prior to paracentesis GI consulted and appreciate input will monitor POSSIBLE UTI on Rocephin await urine cx. will stop abx after third dose THROMBOCYTOPENIA Plt: 22. will f/u cbc. HYPONATREMIA Na: 134. Chronic Na in low 130's will monitor. DM II HA1c was 8.6 on 10/2017. holding metformin and Januvia NovoLog sliding scale DYSLIPIDEMIA holding zetia at this time with child-tucker score 9 HTN Stable. holding HCTZ, spironolactone with GUILLERMINA to continue metoprolol ANEMIA chronic Hgb:9.7. Baseline ~11.2. No active bleeding will monitor DVT Prophylaxis SCDs secondary to thrombocytopenia DISPOSITION to be determined Vital Signs: Date Time Temp Pulse Resp B/P (MAP) Pulse Ox O2 Delivery O2 Flow Rate FiO2 01/01/18 15:33 Room Air 01/01/18 15:15 36.9 80 20 124/74 (91) 100 Room Air 01/01/18 11:33 36.7 76 18 123/74 (90) 99 01/01/18 09:00 Room Air 01/01/18 08:13 37.2 89 20 115/68 (84) 99 01/01/18 03:57 37.2 84 20 100/57 (71) 97 Room Air 01/01/18 01:10 Room Air 01/01/18 00:16 36.9 86 20 130/73 (92) 99 Room Air 12/31/17 20:45 36.8 80 16 105/59 (74) 99 Room Air 12/31/17 19:30 36.7 82 20 124/70 (88) 99 Room Air Lab Results: Results Past 24 Hours Test 12/31/17 20:32 01/01/18 06:05 01/01/18 07:46 01/01/18 07:56 Range/Units Bedside Glucose 199 142 70-90 mg/dl Sodium Level 135 136-145 mmol/L Potassium Level 4.4 3.5-5.1 mmol/L Chloride Level 106 98-107 mmol/L Carbon Dioxide Level 19 21-32 mmol/L Anion Gap 10.0 3-11 mmol/L Blood Urea Nitrogen 41 7-18 mg/dl Creatinine 1.96 0.60-1.20 mg/dl Est Creatinine Clear Calc Drug Dose 39.3 ml/min Estimated GFR () 31.9 Estimated GFR (Non- 27.5 BUN/Creatinine Ratio 21.1 10-20 Random Glucose 135 70-99 mg/dl Calcium Level 9.1 8.5-10.1 mg/dl Magnesium Level 2.1 1.8-2.4 mg/dl Total Bilirubin 2.6 0.2-1 mg/dl Direct Bilirubin 0.9 0-0.2 mg/dl Aspartate Amino Transf (AST/SGOT) 43 15-37 U/L Alanine Aminotransferase (ALT/SGPT) 27 12-78 U/L Alkaline Phosphatase 58 45-117 U/L Total Protein 5.5 6.4-8.2 gm/dl Albumin 3.2 3.4-5.0 gm/dl White Blood Count 3.39 4.8-10.8 K/uL Red Blood Count 2.62 4.2-5.4 M/uL Hemoglobin 8.8 12.0-16.0 g/dL Hematocrit 24.4 37-47 % Mean Corpuscular Volume 93.1 80-100 fL Mean Corpuscular Hemoglobin 33.6 25-34 pg Mean Corpuscular Hemoglobin Concent 36.1 32-36 g/dl Platelet Count 22 130-400 K/uL Mean Platelet Volume 11.7 7.4-10.4 fL Neutrophils (%) (Auto) 57.5 % Lymphocytes (%) (Auto) 23.0 % Monocytes (%) (Auto) 16.8 % Eosinophils (%) (Auto) 2.4 % Basophils (%) (Auto) 0.3 % Neutrophils # (Auto) 1.95 1.4-6.5 K/uL Lymphocytes # (Auto) 0.78 1.2-3.4 K/uL Monocytes # (Auto) 0.57 0.11-0.59 K/uL Eosinophils # (Auto) 0.08 0-0.5 K/uL Basophils # (Auto) 0.01 0-0.2 K/uL RDW Standard Deviation 50.2 36.4-46.3 fL RDW Coefficient of Variation 14.9 11.5-14.5 % Immature Granulocyte % (Auto) 0.0 % Immature Granulocyte # (Auto) 0.00 0.00-0.02 K/uL Red Blood Cell Morphology Unremarkable Test 01/01/18 11:37 01/01/18 17:06 Range/Units Bedside Glucose 169 211 70-90 mg/dl
[2018-01-02] VITALS (17 sets, daily range): BP systolic 96–128; BP diastolic 59–79; PULSE 76–92; TEMP 36.6–37.2; O2SAT 96–100
[2018-01-02] MEDS: ALBUMIN HUMAN 25% 12.5 GM/50 ML VIAL IV SCH ×2 (04:31→13:41)
[2018-01-02 06:47] LABS: INR 1.4 (0.9-1.1)
[2018-01-02 06:48] LABS: ALBUMIN 3.5 gm/dl (3.4-5.0); CALCIUM 9.4 mg/dl (8.5-10.1); CREATININE 1.44 mg/dl (0.60-1.20)
[2018-01-02 06:51] LABS: TOTAL PROTEIN 5.3 gm/dl (6.4-8.2)
[2018-01-02 07:07] LABS: HEMATOCRIT 24.4 % (37-47); HEMOGLOBIN 8.7 g/dL (12.0-16.0); MEAN CELL VOLUME 93.1 fL (80-100); MEAN CORPUSCULAR HEMOGLOBIN 33.2 pg (25-34); MEAN CORPUSCULAR HGB CONC 35.7 g/dl (32-36); MEAN PLATELET VOLUME 11.2 fL (7.4-10.4); PLATELET COUNT 18 K/uL (130-400); RED CELL DISTRIBUTION WIDTH SD 50.6 fL (36.4-46.3); WHITE BLOOD COUNT 3.52 K/uL (4.8-10.8)
[2018-01-02 07:13] LABS: BASO % 0.3 %; BASO ABS # 0.01 K/uL (0-0.2); EOS % 2.3 %; EOS ABS # 0.08 K/uL (0-0.5); LYMPH % 20.2 %; LYMPH ABS # 0.71 K/uL (1.2-3.4); MONO % 16.8 %; MONO ABS # 0.59 K/uL (0.11-0.59); NEUT % 60.4 %; NEUT ABS # 2.13 K/uL (1.4-6.5)
[2018-01-02] MEDS: METOPROLOL TARTRATE 50 MG TAB PO SCH (09:36)
[2018-01-02] MEDS: INSULIN GLARGINE SOLOSTAR 100 UNITS/ML 3 ML PEN SC SCH ×2 (09:38→21:46)
[2018-01-02] MEDS: INSULIN ASPART 100 UNITS/ML 3 ML PEN SC SCH ×4 (09:38→21:45)
[2018-01-02] MEDS ORDERED: PHYTONADIONE 5 MG TAB PO STA (15:44)
[2018-01-02] MEDS: CEFTRIAXONE SOD INJ 1 GM in DEXTROSE 5% ADD-VANTAGE 50ML 50 ML IV SCH (15:49)
--- NOTE | 2018-01-02 17:09 | Progress Note ---
Internal Med Progress Note Date of Service: Jan 02, 2018. Provider Documentation: SUBJECTIVE: resting comfortably on the chair family i room denies any nausea now no abdominal pain 'no sob or cough afebrile OBJECTIVE: Vital Signs-as noted below Exam: General-alert and oriented not in distress Neck-no neck masses Lungs-cta b/l no wheezing or crackles Heart-s1 and s2 heard regular no murmurs Abdomen-soft bowel sounds present non tender distended Extremities-lower extremity edema present no erythema Neuro-alert and oriented moves extremities Lab data as noted below. ASSESSMENT & PLAN: GUILLERMINA Presented with Cr: 3.1 today. Was 1.0 on 12/03/17. received fluids no nephrotoxic agent cr1.4 today on iv albumin random urine sodium 45-possibly not HRS Nephrology on board f/u labs. ASCITES/PANCREATIC CA/CIRRHOSIS Hx ESOPHAGEAL VARICES Hx EGD: 10/17 - esophageal varices. Pt not surgical candidate 2/2 comorbidities. Not on chemo. No active bleeding low sodium diet not on diuretics secondary to ARF plan for paracenteses on Wednesday- may need to give platelets and FFP prior to paracentesis GI consulted and appreciate input will monitor POSSIBLE UTI on Rocephin await urine cx. will stop abx after paracentesis THROMBOCYTOPENIA Plt: 18. will transfuse two uniyts of platelet pheresis as planning for paracentesis in am will f/u cbc. HYPONATREMIA Na: 134. Chronic Na in low 130's will monitor. DM II HA1c was 8.6 on 10/2017. holding metformin and Januvia NovoLog sliding scale will monitor DYSLIPIDEMIA holding zetia at this time with child-tucker score 9 HTN Stable. holding HCTZ, spironolactone with GUILLERMINA to continue metoprolol ANEMIA chronic Hgb:9.7. Baseline ~11.2. No active bleeding will monitor DVT Prophylaxis SCDs secondary to thrombocytopenia DISPOSITION to be determined pt/ot Vital Signs: Date Time Temp Pulse Resp B/P (MAP) Pulse Ox O2 Delivery O2 Flow Rate FiO2 01/02/18 16:35 36.9 82 20 112/70 99 01/02/18 16:19 36.7 79 18 116/70 100 01/02/18 16:19 Room Air 01/02/18 15:19 36.6 78 20 128/74 (92) 100 01/02/18 11:19 36.9 83 20 117/73 (88) 98 01/02/18 09:30 Room Air 01/02/18 07:52 37.0 80 20 96/59 (71) 98 Room Air 01/02/18 04:38 36.8 78 18 110/59 (76) 100 Room Air 01/02/18 04:00 36.7 80 18 113/71 (85) 96 Room Air 01/02/18 00:10 Room Air 01/02/18 00:10 36.7 76 18 124/79 (94) 98 Room Air 01/01/18 22:26 36.9 73 20 109/69 (82) 99 Room Air 01/01/18 20:39 37.1 74 20 111/66 (81) 97 Room Air 01/01/18 20:23 36.9 75 18 125/75 (92) 98 Room Air 01/01/18 20:10 Room Air Lab Results: Results Past 24 Hours Test 01/01/18 17:06 01/01/18 21:01 01/02/18 05:55 01/02/18 08:02 Range/Units Bedside Glucose 211 168 133 70-90 mg/dl White Blood Count 3.52 4.8-10.8 K/uL Red Blood Count 2.62 4.2-5.4 M/uL Hemoglobin 8.7 12.0-16.0 g/dL Hematocrit 24.4 37-47 % Mean Corpuscular Volume 93.1 80-100 fL Mean Corpuscular Hemoglobin 33.2 25-34 pg Mean Corpuscular Hemoglobin Concent 35.7 32-36 g/dl Platelet Count 18 130-400 K/uL Mean Platelet Volume 11.2 7.4-10.4 fL Neutrophils (%) (Auto) 60.4 % Lymphocytes (%) (Auto) 20.2 % Monocytes (%) (Auto) 16.8 % Eosinophils (%) (Auto) 2.3 % Basophils (%) (Auto) 0.3 % Neutrophils # (Auto) 2.13 1.4-6.5 K/uL Lymphocytes # (Auto) 0.71 1.2-3.4 K/uL Monocytes # (Auto) 0.59 0.11-0.59 K/uL Eosinophils # (Auto) 0.08 0-0.5 K/uL Basophils # (Auto) 0.01 0-0.2 K/uL RDW Standard Deviation 50.6 36.4-46.3 fL RDW Coefficient of Variation 15.0 11.5-14.5 % Immature Granulocyte % (Auto) 0.0 % Immature Granulocyte # (Auto) 0.00 0.00-0.02 K/uL Large Platelets 1+ Prothrombin Time 15.0 9.0-12.0 SECONDS Prothromb Time International Ratio 1.4 0.9-1.1 Sodium Level 141 136-145 mmol/L Potassium Level 4.0 3.5-5.1 mmol/L Chloride Level 109 98-107 mmol/L Carbon Dioxide Level 23 21-32 mmol/L Anion Gap 9.0 3-11 mmol/L Blood Urea Nitrogen 32 7-18 mg/dl Creatinine 1.44 0.60-1.20 mg/dl Est Creatinine Clear Calc Drug Dose 52.6 ml/min Estimated GFR () 46.3 Estimated GFR (Non- 39.9 BUN/Creatinine Ratio 22.2 10-20 Random Glucose 130 70-99 mg/dl Calcium Level 9.4 8.5-10.1 mg/dl Magnesium Level 1.6 1.8-2.4 mg/dl Total Bilirubin 2.6 0.2-1 mg/dl Direct Bilirubin 0.8 0-0.2 mg/dl Aspartate Amino Transf (AST/SGOT) 35 15-37 U/L Alanine Aminotransferase (ALT/SGPT) 23 12-78 U/L Alkaline Phosphatase 52 45-117 U/L Total Protein 5.3 6.4-8.2 gm/dl Albumin 3.5 3.4-5.0 gm/dl Test 01/02/18 11:59 01/02/18 16:32 Range/Units Bedside Glucose 182 230 70-90 mg/dl
[2018-01-03] VITALS (8 sets, daily range): BP systolic 99–131; BP diastolic 58–82; PULSE 72–92; TEMP 36.6–37.2; O2SAT 97–100
[2018-01-03 06:59] LABS: INR 1.5 (0.9-1.1)
[2018-01-03 07:21] LABS: ALBUMIN 3.3 gm/dl (3.4-5.0); CALCIUM 9.2 mg/dl (8.5-10.1); CREATININE 1.21 mg/dl (0.60-1.20); POTASSIUM 3.6 mmol/L (3.5-5.1)
[2018-01-03 07:23] LABS: TOTAL PROTEIN 5.2 gm/dl (6.4-8.2)
[2018-01-03 07:32] LABS: HEMOGLOBIN 8.2 g/dL (12.0-16.0); MEAN CELL VOLUME 94.7 fL (80-100); MEAN CORPUSCULAR HEMOGLOBIN 33.7 pg (25-34); MEAN CORPUSCULAR HGB CONC 35.7 g/dl (32-36); MEAN PLATELET VOLUME 10.8 fL (7.4-10.4); PLATELET COUNT 24 K/uL (130-400); RED CELL DISTRIBUTION WIDTH SD 51.4 fL (36.4-46.3); WHITE BLOOD COUNT 3.62 K/uL (4.8-10.8)
[2018-01-03 07:33] LABS: BASO % 0.6 %; BASO ABS # 0.02 K/uL (0-0.2); EOS % 2.8 %; LYMPH % 18.5 %; LYMPH ABS # 0.67 K/uL (1.2-3.4); MONO % 14.6 %; MONO ABS # 0.53 K/uL (0.11-0.59); NEUT % 63.5 %
[2018-01-03] MEDS: METOPROLOL TARTRATE 50 MG TAB PO SCH (09:39)
[2018-01-03] MEDS: INSULIN GLARGINE SOLOSTAR 100 UNITS/ML 3 ML PEN SC SCH ×2 (09:42→21:21)
[2018-01-03] MEDS: INSULIN ASPART 100 UNITS/ML 3 ML PEN SC SCH ×3 (10:43→21:20)
[2018-01-03] MEDS ORDERED: NURSING VERBAL MED ORDER ONE ×2 (11:00→13:15)
--- NOTE | 2018-01-03 11:04 | Gastroenterology Progress Note ---
Progress Note Date of Service: Jan 03, 2018 Subjective Pt evaluation today including: conversation w/ patient, physical exam, chart review, lab review Pt was seen and evaluated, chart reviewed. Was to have paracentesis today. Plt transfusion x 3 w/ little improvement of platelet count, today 24. Offers no complaints. She believes her abdominal distention is improving. Nicholas abd pain. No nausea, vomiting. Tolerating diet. Moving bowels, no black or bloody stools. No fever, chills, CP, SOB Diagnosis: Suspected MEAD Decompensations: Varices: yes Ascites: yes, new no history or paracentesis HE: none Screening HCC: UTD Varices: UTD Immunizations: unknown CT ABD/Pelvis 12/30/17: Cirrhosis with manifestations of portal hypertension including moderatesplenomegaly, moderate ascites and varices formation.. Suboptimal evaluation of the abdomen and pelvis given the lack of IV contrast. Possible hypodensity within the pancreatic body with upstream pancreaticglandular atrophy and possible pancreatic ductal dilatation which may reflectthe known primary pancreatic lesion.Multiple small indeterminate pulmonary nodules. Bilateral nephrolithiasis. Generalized anasarca. Review of Systems Constitutional: No fever, No chills Respiratory: No cough, No sputum, No shortness of breath Cardiac: No chest pain, No edema Abdomen: No pain, No nausea, No vomiting, No diarrhea, No constipation Medications Current Inpatient Medications Medications (Trade) Dose Ordered Sig/Ngoc Route Start Time Stop Time Status Last Admin Dose Admin Polyethylene (Miralax Powder Packet) 17 gm DAILY PRN PO 12/30/17 17:15 01/29/18 17:14 Ondansetron HCl (Zofran Inj) 4 mg Q6H PRN IV 12/30/17 17:15 01/29/18 17:14 Glucose (Glucose 40% Gel) 15-30 GRAMS 15 GRAMS... UD PRN PO 12/30/17 17:45 01/29/18 17:44 Glucose (Glucose Chew Tab) 4-8 Tablets 4 Tabl... UD PRN PO 12/30/17 17:45 01/29/18 17:44 Dextrose (Dextrose 50% 50ML Syringe) 25-50ML OF 50% DW IV FOR... UD PRN IV 12/30/17 17:45 01/29/18 17:44 Glucagon (Glucagon Inj) 1 mg UD PRN SQ 12/30/17 17:45 01/29/18 17:44 Metoprolol Tartrate (Lopressor Tab) 50 mg DAILY PO 12/31/17 08:00 01/30/18 08:59 01/03/18 09:39 50 MG Ceftriaxone Sodium 1 gm/ Dextrose 50 ml @ 100 mls/hr Q24H IV 12/31/17 14:00 01/05/18 13:59 01/02/18 15:49 100 MLS/HR Insulin Glargine (Lantus Solostar Pen) 10 units BID SC 12/31/17 08:00 01/30/18 07:59 01/03/18 09:42 10 UNITS Insulin Aspart (novoLOG ASPART) SLIDING SCALE If C... Q6 SC 01/03/18 12:00 02/02/18 11:59 Objective Vital Signs Date Time Temp Pulse Resp B/P (MAP) Pulse Ox O2 Delivery O2 Flow Rate FiO2 01/03/18 08:01 37.0 81 16 101/59 (73) 97 Room Air 01/03/18 04:00 36.9 84 20 127/72 (90) 98 Room Air 01/03/18 01:21 37.2 92 20 130/69 (89) 99 Room Air 01/03/18 00:20 Room Air 01/02/18 21:05 37.2 92 20 123/72 99 01/02/18 20:05 37.0 86 20 126/76 99 01/02/18 20:00 Room Air 01/02/18 19:35 37.2 87 20 110/60 98 01/02/18 19:05 37.1 87 20 125/75 100 01/02/18 18:50 37.1 85 119/67 100 01/02/18 18:36 36.8 85 18 113/65 100 01/02/18 18:05 37.0 84 16 125/76 100 01/02/18 17:30 36.7 83 20 125/67 100 01/02/18 16:55 36.9 81 16 116/70 100 01/02/18 16:35 36.9 82 20 112/70 99 01/02/18 16:19 36.7 79 18 116/70 100 01/02/18 16:19 Room Air 01/02/18 15:19 36.6 78 20 128/74 (92) 100 01/02/18 11:19 36.9 83 20 117/73 (88) 98 Physical Exam General Appearance: no apparent distress Eyes: PERRL ENT: hearing grossly normal Neck: supple Respiratory/Chest: lungs clear, normal breath sounds Cardiovascular: regular rate, rhythm, no gallop, no JVD Abdomen: normal bowel sounds, non tender, soft, no organomegaly Neurologic/Psych: alert, normal mood/affect, oriented x 3 Skin: normal color, warm/dry, no rash Laboratory Results Last 24 Hours Test 01/02/18 11:59 01/02/18 16:32 01/02/18 21:17 01/03/18 06:24 Bedside Glucose 182 mg/dl 230 mg/dl 181 mg/dl White Blood Count 3.62 K/uL Red Blood Count 2.43 M/uL Hemoglobin 8.2 g/dL Hematocrit 23.0 % Mean Corpuscular Volume 94.7 fL Mean Corpuscular Hemoglobin 33.7 pg Mean Corpuscular Hemoglobin Concent 35.7 g/dl Platelet Count 24 K/uL Mean Platelet Volume 10.8 fL Neutrophils (%) (Auto) 63.5 % Lymphocytes (%) (Auto) 18.5 % Monocytes (%) (Auto) 14.6 % Eosinophils (%) (Auto) 2.8 % Basophils (%) (Auto) 0.6 % Neutrophils # (Auto) 2.30 K/uL Lymphocytes # (Auto) 0.67 K/uL Monocytes # (Auto) 0.53 K/uL Eosinophils # (Auto) 0.10 K/uL Basophils # (Auto) 0.02 K/uL RDW Standard Deviation 51.4 fL RDW Coefficient of Variation 15.0 % Immature Granulocyte % (Auto) 0.0 % Immature Granulocyte # (Auto) 0.00 K/uL Platelet Estimate DECREASED Large Platelets 1+ Prothrombin Time 15.3 SECONDS Prothromb Time International Ratio 1.5 Sodium Level 143 mmol/L Potassium Level 3.6 mmol/L Chloride Level 110 mmol/L Carbon Dioxide Level 23 mmol/L Anion Gap 10.0 mmol/L Blood Urea Nitrogen 25 mg/dl Creatinine 1.21 mg/dl Est Creatinine Clear Calc Drug Dose 62.8 ml/min Estimated GFR () 57.1 Estimated GFR (Non- 49.3 BUN/Creatinine Ratio 20.7 Random Glucose 133 mg/dl Calcium Level 9.2 mg/dl Magnesium Level 1.5 mg/dl Total Bilirubin 2.5 mg/dl Direct Bilirubin 0.7 mg/dl Aspartate Amino Transf (AST/SGOT) 35 U/L Alanine Aminotransferase (ALT/SGPT) 28 U/L Alkaline Phosphatase 52 U/L Total Protein 5.2 gm/dl Albumin 3.3 gm/dl Test 01/03/18 07:43 Bedside Glucose 134 mg/dl Assessment and Plan Patient is a 57 year old female with history of thrombocytopenia, newly diagnosed liver cirrhosis (etiology unclear) and pancreatic adenocarcinoma (not deemed a surgical or medical management candidate due to her cirrhosis) sent to the ED for abnormal labs, GUILLERMINA, will need to rule out HRS given diuretic use and underlying cirrhosis. Urine NA not compatible with HRS, GUILLERMINA has been improving daily. Paracentesis postponed as PLTs without significant improvement despite transfusion - Electrolyte management per the primary service - GUILLERMINA Management - Random urine NA 45 - Not compatible with HRS - Daily CMP - Continue Albumin 25% 25G TID today - Can D/C tomorrow - Would plan to resume Aldactone 50 mg daily and lasix 20 mg daily - Ascites Management - Less than 2G NA daily - Pt would like to have a paracentesis for comfort - Fluid will likely re-accumulate, her plts will make this difficult to arrange additional paracentesis - Discussed w/ primary team who will arrange for additional plt transfusion - Will need platelets above 50 w/ INR less than 1.6 for diagnostic/ therapeutic paracentesis - cell count, cytology, culture, protein, albumin - albumin 25% 25G before and after - Cirrhosis Management - less than 2G tylenol daily - check supplements with GI prior to continued use - HCC screen every 6 months - Immunizations towards Hep A/Hep B GI to follow, please call with any acute changes, questions or concerns. Attg add: I intreviewed and examined pt, reviewed chart and labs. Pt with cirrhosis, ascites, t-penia, panc ca. Would favor med management of ascites with diuretics. Therapeutic tap unlikely to be performed given severe thrombocytopenia; also, this is only likely to provide short term relief. Will review imaging to look for evidence of mesenteric venous thrombosis. Eltrombopag for thrombocytopenia?
[2018-01-03] MEDS ORDERED: INSULIN ASPART 100 UNITS/ML 3 ML PEN SC SCH (12:00)
[2018-01-03] MEDS: CEFTRIAXONE SOD INJ 1 GM in DEXTROSE 5% ADD-VANTAGE 50ML 50 ML IV SCH (13:57)
[2018-01-03] MEDS: POLYETHYLENE (MIRALAX) 17 GM PACK PO PRN (15:16)
--- NOTE | 2018-01-03 17:49 | Progress Note ---
Internal Med Progress Note Date of Service: Jan 03, 2018. Provider Documentation: SUBJECTIVE: resting comfortably on the chair denies any [pain eating ok no sob no cough no plan for paracentesis and patient ok with that OBJECTIVE: Vital Signs-as noted below Exam: General-alert and oriented not in distress Neck-no neck masses Lungs-cta b/l no wheezing or crackles Heart-s1 and s2 heard regular no murmurs Abdomen-soft bowel sounds present non tender distended Extremities-lower extremity edema present no erythema Neuro-alert and oriented moves extremities Lab data as noted below. ASSESSMENT & PLAN: 57F with liver cirrhosis, pancreatic cancer and ascites presented with GUILLERMINA. Diuretics on hold and received iv albumin. Planned for paracentesis was not done because of low platelets. Gi wants to restart diuretics tomorrow for ascites. Tx for thrombocytopenia? as per GI. Continue to monitor on diuretics. GUILLERMINA Presented with Cr: 3.1 today. Was 1.0 on 12/03/17. received fluids no nephrotoxic agent cr1.2 today was on iv albumin which is topped today random urine sodium 45-possibly not HRS Nephrology on board f/u labs. ASCITES/PANCREATIC CA/CIRRHOSIS Hx ESOPHAGEAL VARICES Hx EGD: 10/17 - esophageal varices. Pt not surgical candidate 2/2 comorbidities. Not on chemo. No active bleeding low sodium diet not on diuretics secondary to ARF plan for paracenteses today butwas cancelled because of low platelets and anyaway it will recur. plan to start on diuretics in am- appreciate GI inputs POSSIBLE UTI on Rocephin await urine cx. will stop abx today THROMBOCYTOPENIA Plt: 18.yesterday s/p transfused two units of platelet pheresis yesterday platelets 24 today HYPONATREMIA Na: 134. Chronic Na in low 130's will monitor. DM II HA1c was 8.6 on 10/2017. holding metformin and Januvia NovoLog sliding scale will monitor DYSLIPIDEMIA holding zetia at this time with child-tucker score 9 HTN Stable. holding HCTZ, spironolactone with GUILLERMINA to continue metoprolol ANEMIA chronic Hgb:8.2. Baseline ~11.2. No active bleeding will monitor DVT Prophylaxis SCDs secondary to thrombocytopenia DISPOSITION to be determined pt/ot possible d/c in 1-2 days Vital Signs: Date Time Temp Pulse Resp B/P (MAP) Pulse Ox O2 Delivery O2 Flow Rate FiO2 3/5/18 16:20 36.9 72 18 120/72 (88) 99 Room Air 01/03/18 16:00 99 Room Air 01/03/18 11:09 36.6 84 18 99/58 (72) 97 Room Air 01/03/18 08:01 37.0 81 16 101/59 (73) 97 Room Air 01/03/18 08:00 97 Room Air 01/03/18 04:00 36.9 84 20 127/72 (90) 98 Room Air 01/03/18 01:21 37.2 92 20 130/69 (89) 99 Room Air 01/03/18 00:20 Room Air 01/02/18 21:05 37.2 92 20 123/72 99 01/02/18 20:05 37.0 86 20 126/76 99 01/02/18 20:00 Room Air 01/02/18 19:35 37.2 87 20 110/60 98 Lab Results: Results Past 24 Hours Test 01/02/18 21:17 01/03/18 06:24 01/03/18 07:43 01/03/18 12:15 Range/Units Bedside Glucose 181 134 206 70-90 mg/dl White Blood Count 3.62 4.8-10.8 K/uL Red Blood Count 2.43 4.2-5.4 M/uL Hemoglobin 8.2 12.0-16.0 g/dL Hematocrit 23.0 37-47 % Mean Corpuscular Volume 94.7 80-100 fL Mean Corpuscular Hemoglobin 33.7 25-34 pg Mean Corpuscular Hemoglobin Concent 35.7 32-36 g/dl Platelet Count 24 130-400 K/uL Mean Platelet Volume 10.8 7.4-10.4 fL Neutrophils (%) (Auto) 63.5 % Lymphocytes (%) (Auto) 18.5 % Monocytes (%) (Auto) 14.6 % Eosinophils (%) (Auto) 2.8 % Basophils (%) (Auto) 0.6 % Neutrophils # (Auto) 2.30 1.4-6.5 K/uL Lymphocytes # (Auto) 0.67 1.2-3.4 K/uL Monocytes # (Auto) 0.53 0.11-0.59 K/uL Eosinophils # (Auto) 0.10 0-0.5 K/uL Basophils # (Auto) 0.02 0-0.2 K/uL RDW Standard Deviation 51.4 36.4-46.3 fL RDW Coefficient of Variation 15.0 11.5-14.5 % Immature Granulocyte % (Auto) 0.0 % Immature Granulocyte # (Auto) 0.00 0.00-0.02 K/uL Platelet Estimate DECREASED Large Platelets 1+ Prothrombin Time 15.3 9.0-12.0 SECONDS Prothromb Time International Ratio 1.5 0.9-1.1 Sodium Level 143 136-145 mmol/L Potassium Level 3.6 3.5-5.1 mmol/L Chloride Level 110 98-107 mmol/L Carbon Dioxide Level 23 21-32 mmol/L Anion Gap 10.0 3-11 mmol/L Blood Urea Nitrogen 25 7-18 mg/dl Creatinine 1.21 0.60-1.20 mg/dl Est Creatinine Clear Calc Drug Dose 62.8 ml/min Estimated GFR () 57.1 Estimated GFR (Non- 49.3 BUN/Creatinine Ratio 20.7 10-20 Random Glucose 133 70-99 mg/dl Calcium Level 9.2 8.5-10.1 mg/dl Magnesium Level 1.5 1.8-2.4 mg/dl Total Bilirubin 2.5 0.2-1 mg/dl Direct Bilirubin 0.7 0-0.2 mg/dl Aspartate Amino Transf (AST/SGOT) 35 15-37 U/L Alanine Aminotransferase (ALT/SGPT) 28 12-78 U/L Alkaline Phosphatase 52 45-117 U/L Total Protein 5.2 6.4-8.2 gm/dl Albumin 3.3 3.4-5.0 gm/dl Test 01/03/18 17:00 Range/Units Bedside Glucose 188 70-90 mg/dl
[2018-01-04 04:32] VITALS: BP 120/60; PULSE 77; TEMP 36.7; O2SAT 97
[2018-01-04 07:11] VITALS: BP 109/70; PULSE 75; TEMP 37.1; O2SAT 97
[2018-01-04] MEDS: METOPROLOL TARTRATE 50 MG TAB PO SCH (09:28)
[2018-01-04] MEDS: INSULIN ASPART 100 UNITS/ML 3 ML PEN SC SCH ×4 (09:31→21:07)
[2018-01-04] MEDS: INSULIN GLARGINE SOLOSTAR 100 UNITS/ML 3 ML PEN SC SCH ×2 (09:33→21:06)
[2018-01-04] MEDS: POLYETHYLENE (MIRALAX) 17 GM PACK PO PRN (09:34)
--- NOTE | 2018-01-04 09:52 | Gastroenterology Progress Note ---
Progress Note Date of Service: Jan 04, 2018 Subjective Pt evaluation today including: conversation w/ patient, physical exam, chart review, lab review Pt was seen and evaluated, chart reviewed. No acute events overnight. Wants to go home. Did not undergo paracentesis after discussion w/ pt, family and Dr. Franklin. Continues to note improvement of her abdominal distention. No abd pain, fever, chills, CP, SOB Diagnosis: Suspected MEAD Decompensations: Varices: yes Ascites: yes, new no history or paracentesis HE: none Screening HCC: UTD Varices: UTD Immunizations: unknown CT ABD/Pelvis 12/30/17: Cirrhosis with manifestations of portal hypertension including moderatesplenomegaly, moderate ascites and varices formation.. Suboptimal evaluation of the abdomen and pelvis given the lack of IV contrast. Possible hypodensity within the pancreatic body with upstream pancreaticglandular atrophy and possible pancreatic ductal dilatation which may reflectthe known primary pancreatic lesion.Multiple small indeterminate pulmonary nodules. Bilateral nephrolithiasis. Generalized anasarca. Review of Systems Constitutional: No fever, No chills, No weakness, No fatigue Respiratory: No cough, No shortness of breath Cardiac: No chest pain, No edema Abdomen: No pain, No nausea, No vomiting, No diarrhea Endo: No fatigue Skin: No rash, No itch Medications Current Inpatient Medications Medications (Trade) Dose Ordered Sig/Ngoc Route Start Time Stop Time Status Last Admin Dose Admin Polyethylene (Miralax Powder Packet) 17 gm DAILY PRN PO 12/30/17 17:15 01/29/18 17:14 01/04/18 09:34 17 GM Ondansetron HCl (Zofran Inj) 4 mg Q6H PRN IV 12/30/17 17:15 01/29/18 17:14 Glucose (Glucose 40% Gel) 15-30 GRAMS 15 GRAMS... UD PRN PO 12/30/17 17:45 01/29/18 17:44 Glucose (Glucose Chew Tab) 4-8 Tablets 4 Tabl... UD PRN PO 12/30/17 17:45 01/29/18 17:44 Dextrose (Dextrose 50% 50ML Syringe) 25-50ML OF 50% DW IV FOR... UD PRN IV 12/30/17 17:45 01/29/18 17:44 Glucagon (Glucagon Inj) 1 mg UD PRN SQ 12/30/17 17:45 01/29/18 17:44 Metoprolol Tartrate (Lopressor Tab) 50 mg DAILY PO 12/31/17 08:00 01/30/18 08:59 01/04/18 09:28 50 MG Insulin Glargine (Lantus Solostar Pen) 10 units BID SC 12/31/17 08:00 01/30/18 07:59 01/04/18 09:33 10 UNITS Insulin Aspart (novoLOG ASPART) SLIDING SCALE If C... ACHS SC 01/03/18 16:30 02/02/18 16:29 01/04/18 09:31 8 UNITS Objective Vital Signs Date Time Temp Pulse Resp B/P (MAP) Pulse Ox O2 Delivery O2 Flow Rate FiO2 01/04/18 07:11 37.1 75 18 109/70 (83) 97 Room Air 01/04/18 04:32 36.7 77 18 120/60 (80) 97 Room Air 01/04/18 00:00 Room Air 01/03/18 20:10 36.8 75 18 131/82 (98) 100 Room Air 01/03/18 20:00 Room Air 01/03/18 16:20 36.9 72 18 120/72 (88) 99 Room Air 01/03/18 16:00 99 Room Air 01/03/18 11:09 36.6 84 18 99/58 (72) 97 Room Air Physical Exam General Appearance: no apparent distress Eyes: PERRL ENT: hearing grossly normal Neck: supple Respiratory/Chest: lungs clear, normal breath sounds, no respiratory distress, no accessory muscle use Cardiovascular: regular rate, rhythm, no edema, no gallop Abdomen: normal bowel sounds, non tender, soft, no organomegaly Neurologic/Psych: alert, normal mood/affect, oriented x 3 Skin: normal color, no jaundice, warm/dry Laboratory Results Last 24 Hours Test 01/03/18 12:15 01/03/18 17:00 01/03/18 20:05 01/04/18 07:48 Bedside Glucose 206 mg/dl 188 mg/dl 226 mg/dl 138 mg/dl Assessment and Plan Patient is a 57 year old female with history of thrombocytopenia, newly diagnosed liver cirrhosis (etiology unclear) and pancreatic adenocarcinoma (not deemed a surgical or medical management candidate due to her cirrhosis) sent to the ED for abnormal labs, GUILLERMINA, will need to rule out HRS given diuretic use and underlying cirrhosis. Urine NA not compatible with HRS, GUILLERMINA has been improving daily. Paracentesis postponed as PLTs without significant improvement despite transfusion MELD 15 - Electrolyte management per the primary service - GUILLERMINA Management - Random urine NA 45 - Not compatible with HRS - Daily CMP - Would plan to resume Aldactone 50 mg daily and lasix 20 mg daily - Ascites Management - Less than 2G NA daily - Paracentesis deferred - Cirrhosis Management - less than 2G tylenol daily - check supplements with GI prior to continued use - HCC screen every 6 months - Immunizations towards Hep A/Hep B GI to sign off. Would suggest to resume lasix/aldactone with a BMP in one week with her PCP. She can keep her follow up with GI as scheduled. Please call with any acute changes, questions or concerns. Att add: Ieviewed chart and labs. Plan as above.
[2018-01-04 10:46] LABS: CALCIUM 9.2 mg/dl (8.5-10.1); CREATININE 1.17 mg/dl (0.60-1.20); POTASSIUM 3.8 mmol/L (3.5-5.1)
[2018-01-04 10:48] LABS: HEMATOCRIT 27.4 % (37-47); HEMOGLOBIN 9.6 g/dL (12.0-16.0); MEAN CELL VOLUME 95.5 fL (80-100); MEAN CORPUSCULAR HEMOGLOBIN 33.4 pg (25-34); MEAN PLATELET VOLUME 10.4 fL (7.4-10.4); PLATELET COUNT 22 K/uL (130-400); RED CELL DISTRIBUTION WIDTH CV 15.3 % (11.5-14.5); RED CELL DISTRIBUTION WIDTH SD 53.3 fL (36.4-46.3); WHITE BLOOD COUNT 3.68 K/uL (4.8-10.8)
[2018-01-04 11:18] VITALS: BP 144/82; PULSE 75; TEMP 36.6; O2SAT 98
[2018-01-04 15:31] VITALS: BP 117/70; PULSE 66; TEMP 36.9; O2SAT 99
[2018-01-04 16:00] VITALS: O2SAT 99
--- NOTE | 2018-01-04 16:59 | Progress Note ---
Internal Med Progress Note Date of Service: Jan 04, 2018. Provider Documentation: SUBJECTIVE: Patient found sitting on chair, no complaint of nausea no abdominal discomfort. Dimension abdominal bloating and swelling has improved. No nausea vomiting Wants to be discharged home tomorrow. OBJECTIVE: Vital Signs-as noted below Exam: General-very pleasant no sign of distress Eyes-sclera mildly icteric ENT-moist oral mucosa Neck-no JVD no thyromegaly no carotid Lungs-clear to auscultate no wheezes rales Heart-regular S1-S2 Abdomen-soft nontender, positive ascites, Extremities-trace bilateral edema Neuro-alert awake oriented 3, no focal neurological deficit Lab data as noted below. ASSESSMENT & PLAN: 1.Acute kidney injury: Presented with creatinine 3.1. Creatinine improved to 1.1 today. Appreciate input from nephrology. avoid nephrotoxic Patient advised to avoid NSAIDs Avoid contrast studies when possible. 2.PANCREATIC CA: Recently diagnosed Noted candidate for chemo treatment or surgical intervention as she has advanced liver cirrhosis, severe thrombocytopenia Palliative care recommended At present patient is comfortable, no complaint of pain or discomfort Follows up at [facility]. 3. CIRRHOSIS OF LIVER /ascites Idiopathic cirrhosis EGD shows esophageal varices Not amenable to banding due to thrombocytopenia/high bleeding risk Appreciate GI input -Recommend patient will be continued Aldactone 50 mg daily, Lasix 20 daily 4. SPLENOMEGALY /CHRONIC THROMBOCYTOPENIA : Platelet count improved to 22 today Status post 2 units of platelet transfusion No evidence of bleeding Patient is asked to avoid aspirin, antiplatelets 5.Hyperlipidemia: Hold Zetia, due to advanced liver disease 6. Type 2 diabetes Patient is asked to hold metformin, high risk for metabolic acidosis in setting of renal failure Patient can continue Januvia continue follow-up with family doctor for adjustment of diabetic FULL CODE DVT PROPHYLAXIS SCDs and teds No pharmacological anticoagulation secondary to thrombocytopenia DISPOSITION Possible discharge home tomorrow Medicine follow-up with Dr. Edge Patient follows with hematology oncology at [facility] Outpatient follow-up with [facility] as needed, or worsening of ascites/need for paracentesis Vital Signs: Date Time Temp Pulse Resp B/P (MAP) Pulse Ox O2 Delivery O2 Flow Rate FiO2 01/04/18 16:00 99 Room Air 01/04/18 15:31 36.9 66 17 117/70 (86) 99 Room Air 01/04/18 11:18 36.6 75 17 144/82 (102) 98 01/04/18 09:30 Room Air 01/04/18 07:11 37.1 75 18 109/70 (83) 97 Room Air 01/04/18 04:32 36.7 77 18 120/60 (80) 97 Room Air 01/04/18 00:00 Room Air 01/03/18 20:10 36.8 75 18 131/82 (98) 100 Room Air 01/03/18 20:00 Room Air Lab Results: Results Past 24 Hours Test 01/03/18 20:05 01/04/18 07:48 01/04/18 10:06 01/04/18 11:40 Range/Units Bedside Glucose 226 138 200 70-90 mg/dl White Blood Count 3.68 4.8-10.8 K/uL Red Blood Count 2.87 4.2-5.4 M/uL Hemoglobin 9.6 12.0-16.0 g/dL Hematocrit 27.4 37-47 % Mean Corpuscular Volume 95.5 80-100 fL Mean Corpuscular Hemoglobin 33.4 25-34 pg Mean Corpuscular Hemoglobin Concent 35.0 32-36 g/dl RDW Standard Deviation 53.3 36.4-46.3 fL RDW Coefficient of Variation 15.3 11.5-14.5 % Platelet Count 22 130-400 K/uL Mean Platelet Volume 10.4 7.4-10.4 fL Platelet Estimate SIGNIFIC DECREASED Sodium Level 141 136-145 mmol/L Potassium Level 3.8 3.5-5.1 mmol/L Chloride Level 110 98-107 mmol/L Carbon Dioxide Level 22 21-32 mmol/L Anion Gap 9.0 3-11 mmol/L Blood Urea Nitrogen 21 7-18 mg/dl Creatinine 1.17 0.60-1.20 mg/dl Est Creatinine Clear Calc Drug Dose 64.9 ml/min Estimated GFR () 59.5 Estimated GFR (Non- 51.3 BUN/Creatinine Ratio 18.1 10-20 Random Glucose 225 70-99 mg/dl Calcium Level 9.2 8.5-10.1 mg/dl Test 01/04/18 16:49 Range/Units Bedside Glucose 172 70-90 mg/dl
[2018-01-04 19:19] VITALS: BP 154/84; PULSE 71; TEMP 36.7; O2SAT 97
[2018-01-05 00:04] VITALS: BP 112/72; PULSE 80; TEMP 36.8; O2SAT 99
[2018-01-05 04:24] VITALS: BP 112/63; PULSE 69; TEMP 36.8; O2SAT 97
[2018-01-05 07:43] VITALS: BP 112/70; PULSE 73; TEMP 36.9; O2SAT 98
[2018-01-05] MEDS: METOPROLOL TARTRATE 50 MG TAB PO SCH (07:56)
[2018-01-05] MEDS ORDERED: FUROSEMIDE 20 MG TAB PO SCH (08:00)
[2018-01-05] MEDS: INSULIN ASPART 100 UNITS/ML 3 ML PEN SC SCH ×2 (09:02→12:46)
[2018-01-05] MEDS: INSULIN GLARGINE SOLOSTAR 100 UNITS/ML 3 ML PEN SC SCH (09:03)
[2018-01-05 11:17] VITALS: BP 111/69; PULSE 65; TEMP 36.6; O2SAT 99
[2018-01-05] MEDS ORDERED: LSX20 PO (12:31)
--- NOTE | 2018-01-05 12:35 | Discharge Instructions ---
Discharge Instructions Date of Service Jan 05, 2018. Admission Reason for Admission: Farhan, Pancreatic Cancer, Thrombocytopenia Discharge Discharge Diagnosis / Problem: LIVER CIRRHOSIS /ASCITEIS /ACUTE RENAL FAILURE - RESOLVED /THROMBOCYTOPENIA Discharge Goals Goal(s): Decrease discomfort, Increase independence, Improve disease control, Diagnostic testing, Therapeutic intervention Activity Recommendations Activity Limitations: resume your previous activity . Instructions / Follow-Up Instructions / Follow-Up HOSPITAL FOLLOW UP : 01/12/2018 11:20 AM Sal Edge MD Family Practice [facility] GASTROENTEROLOGY FOLLOW UP : 01/20/2018 10:00 AM Cortes Reed DO Gastroenterology, [facility] LAB WORK: COMPLETE BLOOD WORK , BASIC METABOLIC PANEL ON 01/12/18 HEMATOLOGY/ONCOLOGY FOLLOW UP : 01/14/2018 4:00 PM Eris Batista MD Hematology Oncology [facility] DO NOT TAKE ASPIRIN , AVOID MOTRIN, IBUPROFEN , ALEVE, NAPROXEN -NO NSAID'S WILL CAUSE FURTHER DECLINE IN YOUR KIDNEY FUNCTION AVOID CONTRAST EXPOSURE IN IMAGING STUDIES OR PROCEDURES UNLESS LIFE SAVING SITUATION CONTINUE TO FOLLOW UP WITH HEME ONC IN [facility] Current Hospital Diet Patient's current hospital diet: Diabetes Type 2 Diet, Low Sodium Diet (2gm Na) Discharge Diet Recommended Diet: Low Sodium Diet (2gm Na), Diabetes Type 2 Diet Pending Studies Studies pending at discharge: yes List of pending studies: LAB WORK: COMPLETE BLOOD WORK , BASIC METABOLIC PANEL ON 01/12/18 Medical Emergencies . Who to Call and When: Medical Emergencies: If at any time you feel your situation is an emergency, please call 911 immediately. . Non-Emergent Contact Non-Emergency issues call your: Primary Care Provider . . "Provider Documentation" section prepared by Kennedi Muniz. .
[2018-01-05 13:03] VITALS: BP 111/69; PULSE 65; TEMP 36.6; O2SAT 99
--- NOTE | 2018-01-05 14:23 | Discharge Summary ---
Discharge Summary Date of Service Jan 05, 2018. Discharge Summary Admission Date: Dec 30, 2017 at 17:02 Discharge Date: Jan 05, 2018 Discharge Disposition: Home Principal Diagnosis: LIVER CIRRHOSIS /ASCITES /ACUTE RENAL FAILURE -RESOLVED /THROMBOCYTOPENIA Procedures: Liver ultrasound/Doppler of portal hepatic veins: Cirrhosis with patent hepatic vasculature and normal directional flow. CT abdomen pelvis without contrast: 1. Cirrhosis with manifestations of portal hypertension including moderate splenomegaly, moderate ascites and cirrhosis formation. 2. Suboptimal evaluation of the abdomen and pelvis given the lack of IV contrast. 3. Possible hypodensity within the pancreatic body with upstream pancreatic glandular atrophy and possible pancreatic ductal dilatation which may reflect the known primary pancreatic lesion 4. Multiple small indeterminate pulmonary nodules. 5. Bilateral nephrolithiasis. 6. Generalized anasarca.. Bilateral lower extremity Doppler, No evidence of DVT. Consultations: [facility] GASTROENTEROLOGY [facility] NE[facility]ROLOG[facility] LISA KING Medication Reconciliation New Medications: Furosemide (Furosemide) 20 Mg Tab 20 MG PO QAM for 30 Days, #30 TAB 2 Refills Continued Medications: Alprazolam (Xanax) 0.5 Mg Tab 1 TAB PO HS PRN for Insomnia for 30 Days, TAB Metoprolol Tartrate (Lopressor) (Lopressor) 50 Mg Tab 50 MG PO DAILY, TAB Sitagliptin Phosphate (Januvia) 100 Mg Tab 100 MG PO QPM, TAB Spironolactone (Aldactone) 50 Mg Tab 50 MG PO DAILY, TAB Discontinued Medications: Ezetimibe (Zetia) 10 Mg Tab 10 MG PO HS, TAB Hydrochlorothiazide (Hydrochlorothiazide) 12.5 Mg Tab 1 TAB PO DAILY PRN for PRN for 30 Days, #30 TAB 5 Refills Ibuprofen (Ibuprofen) 200 Mg Cap 2 TAB PO BID for Pain Metformin Hcl (Glucophage) 1,000 Mg Tab 1000 MG PO BID, TAB Referrals At Discharge Follow up Referrals: Outbound Sales Agent Referral - 01/20/18 with Cortes Reed DO Physician Referral - 01/12/18 with Sal Edge M.D. Admission Information HPI (per Admitting provider): Pt is 57 y/o F with PMH HTN, DM II, pancreatic CA dx 10/2017, cirrhosis with portal hypertension, ascites, splenomegaly, portosystemic varices, small esophageal varices seen on EGD 10/17, thrombocytopenia presented to ER for abnormal lab values of K:6.0 and Cr: 3. Pt following with Dr Eris Batista [place] [facility] [place] Pt not surgical candidate, not on chemo. Pt reports increased fatigue past 2 weeks. Pt states past 2 weeks noticed increased abdominal swelling. Having some intermittent right sided abdominal pain past couple of weeks also. Has been taking HCTZ daily and spironolactone daily. chronic LE edema for years, noticed increased edema past 4-5 days. Reports has BM every 3- 4 days. pt reports was given lactulose 30ml to take once daily. States took twice and had abdominal cramping and stopped. She is following with holistic practitioner and is taking herbal supplements, pt unsure what all she is taking. She hasn't been using creon since taking supplements. Using ibuprofen 200-400 mg BID. Reports hasn't been eating and drinking well past couple of days. 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 pt states platelet levels, been stable for several months. Hasn't had NPLATE since 09/2017. Denies hx encephalopathy. Denies hx paracentesis. Denies melena, hematochezia, hematuria, fever/chills, diaphoresis , N/V/D, [place], dizziness, syncope, neck pain, CP, palpitations, cough, sore throat , choking. Hx CT Abd/Pelvis 09/27/17: Cirrhosis of liver with portal hypertension. splenomegaly, small ascites, and portosystemic varices. No focal hepatic lesion seen. Pancreatic neck/body hypodensity, [id number], with mild upstream pancreatic ductal prominence. several small basilar pulmonary nodules, largest 5mm. Repeat K: 4.8 here in ER today. Physical Exam (per Admitting): General Appearance: WD/WN, no apparent distress Head: normocephalic, atraumatic Eyes: PERRL, EOMI, + abnormal sclerae exam (+icterus) ENT: hearing grossly normal, pharynx normal, + pertinent finding (mildly dry mucous membranes) Neck: supple, no JVD, trachea midline Respiratory/Chest: lungs clear, normal breath sounds, no respiratory distress, no accessory muscle use Cardiovascular: regular rate, rhythm, no murmur, normal peripheral pulses Abdomen/GI: normal bowel sounds, non tender, + distended, + pertinent finding (dull to percusion) Back: no CVA tenderness Extremities/Musculoskelatal: no calf tenderness, normal capillary refill, + pedal edema (2+ bilaterally) Neurologic/Psych: alert, normal mood/affect, oriented x 3, + pertinent finding (no asterixis ) Skin: warm/dry, no rash Hospital Course 1.Acute kidney injury: Presented with creatinine 3.1. Creatinine improved to 1.1 Appreciate input from nephrology. avoid nephrotoxic Patient advised to avoid NSAIDs Avoid contrast studies when possible. -Patient is asked not to take HCTZ Stop taking ibuprofen was taking as needed for pain Patient will be seen by her family physician Dr. Edge on 01/12/2018Wednesday We will have repeat lab work: Basic metabolic panel checked 2.PANCREATIC CA: Recently diagnosed Not a candidate for chemo treatment or surgical intervention as she has advanced liver cirrhosis, severe thrombocytopenia Palliative care recommended At present patient is comfortable, no complaint of pain or discomfort Follows up at [facility]. -Scheduled to follow-up with hematology oncology on January 16, 2018Wednesday -Patient is scheduled to have a CT abdomen pelvis. IV and p.o. contrast for assessment of possible immune thrombocytopenia -Her lab work will be checked as an outpatient next week -Recommend contrast studies to be avoided unless it will change the plan of treatment, life-saving procedure 3. CIRRHOSIS OF LIVER /ascites Idiopathic nonalcoholic liver cirrhosis/MEAD- Recent EGD shows esophageal varices Not amenable to banding due to thrombocytopenia/high bleeding risk Appreciate GI input -Recommend patient will be continued Aldactone 50 mg daily, Lasix 20 daily -Scheduled to see Dr. Waldo Reed on 01/20/2018 at [facility] in [facility] -Patient is instructed for low-sodium diet 4. SPLENOMEGALY /IMMUNE THROMBOCYTOPENIA : Platelet count improved to 22 Status post 2 units of platelet transfusion No evidence of bleeding Patient is asked to avoid aspirin, antiplatelets 5.Hyperlipidemia: d/C Zetia, due to advanced liver disease 6. Type 2 diabetes Patient is asked to hold metformin, high risk for metabolic acidosis in setting of renal failure Patient can continue Januvia continue follow-up with family doctor for adjustment of diabetic May need to transition to insulin in future. FULL CODE DVT PROPHYLAXIS SCDs and teds No pharmacological anticoagulation secondary to thrombocytopenia DISPOSITION Discharge home today Medicine follow-up with Dr. Edge Patient follows with hematology oncology at [facility] Outpatient follow-up with [facility] scheduled on 01/20/2018 Total time spent on discharge = 45 minutes This includes examination of the patient, discharge planning, medication reconciliation, and communication with other providers. Discharge Instructions Discharge Instructions Date of Service Jan 05, 2018. Admission Reason for Admission: Farhan, Pancreatic Cancer, Thrombocytopenia Discharge Discharge Diagnosis / Problem: LIVER CIRRHOSIS /ASCITES /ACUTE RENAL FAILURE - RESOLVED /THROMBOCYTOPENIA Discharge Goals Goal(s): Decrease discomfort, Increase independence, Improve disease control, Diagnostic testing, Therapeutic intervention Activity Recommendations Activity Limitations: resume your previous activity . Instructions / Follow-Up Instructions / Follow-Up HOSPITAL FOLLOW UP : 01/12/2018 11:20 AM Sal Edge MD [facility] GASTROENTEROLOGY FOLLOW UP : 01/20/2018 10:00 AM Cortes Reed DO Gastroenterology, [facility] LAB WORK: COMPLETE BLOOD WORK , BASIC METABOLIC PANEL ON 01/12/18 HEMATOLOGY/ONCOLOGY FOLLOW UP : 01/14/2018 4:00 PM Eris Batista MD Hematology Oncology [facility] DO NOT TAKE ASPIRIN , AVOID MOTRIN, IBUPROFEN , ALEVE, NAPROXEN -NO NSAID'S WILL CAUSE FURTHER DECLINE IN YOUR KIDNEY FUNCTION AVOID CONTRAST EXPOSURE IN IMAGING STUDIES OR PROCEDURES UNLESS LIFE SAVING SITUATION CONTINUE TO FOLLOW UP WITH HEME ONC IN [facility] Current Hospital Diet Patient's current hospital diet: Diabetes Type 2 Diet, Low Sodium Diet (2gm Na) Discharge Diet Recommended Diet: Low Sodium Diet (2gm Na), Diabetes Type 2 Diet Pending Studies Studies pending at discharge: yes List of pending studies: LAB WORK: COMPLETE BLOOD WORK , BASIC METABOLIC PANEL ON 01/12/18 Medical Emergencies . Who to Call and When: Medical Emergencies: If at any time you feel your situation is an emergency, please call 911 immediately. . Non-Emergent Contact Non-Emergency issues call your: Primary Care Provider . . "Provider Documentation" section prepared by Kennedi Muniz. . Additional Copies To Sal Edge M.D. Duncan, Marten B.,
== END 2018-01-05 14:15 | disposition home or self-care (01) | DRG 683 ==
LOC: C.EDB 12:38 → C.4E 17:02 → ENRESERV 17:28
PROVIDERS: ADMIT Hospitalist; ATTEND Hospitalist
DX: N17.9 Acute kidney failure, unspecified (principal); C25.9 Malignant neoplasm of pancreas, unspecified; K76.6 Portal hypertension; R18.8 Other ascites; E87.1 Hypo-osmolality and hyponatremia; I85.00 Esophageal varices without bleeding; D69.59 Other secondary thrombocytopenia; N39.0 Urinary tract infection, site not specified; K74.60 Unspecified cirrhosis of liver; E11.9 Type 2 diabetes mellitus without complications; I10 Essential (primary) hypertension; K75.81 Nonalcoholic steatohepatitis (NASH); E78.5 Hyperlipidemia, unspecified; D64.9 Anemia, unspecified